=== PATIENT | female | born 1945 | race Caucasian/White ===

== ENCOUNTER → 2018-01-01 09:08 | Outpatient (CLI) | payer MEDICARE, BC, SELFPAY ==
[2018-01-01 10:59] LABS: AST(SGOT) 20 U/L (15-37); Alanine Aminotransfer ALT/SGPT 33 U/L (13-56); Albumin, Serum 3.7 g/dL (3.2-5.0); Alkaline Phosphatase 67 U/L (45-117); Anion Gap 9 (5-15); BUN 18 mg/dL (7-18); BUN/Creat Ratio 16.1 RATIO (10-20); Calcium,Total 9.8 mg/dL (8.5-10.1); Chloride 106 mmol/L (98-107); Creatinine, Serum 1.12 mg/dL (0.55-1.02); EST Glomerular Filtration Rate 51 mL/min (>60); Est Glom Filt Rate - Afr Amer 61 mL/min (>60); Globulin 3.7 g/dL (2.2-4.2); Glucose 137 mg/dL (74-106); Potassium 3.6 mmol/L (3.5-5.1); Protein, Total 7.4 g/dL (6.4-8.2); Sodium Level 144 mmol/L (136-145); T4 Free Direct 1.07 ng/dL (0.76-1.46); Thyroid Stim Hormone (TSH) 0.35 uIU/mL (0.358-3.74)
== END ==
LOC: MFPLAB 09:09 → MTLAB 09:18
PROVIDERS: Family Provider Family Medicine; PCP Family Medicine; Visit Provider Family Medicine
DX: I10 Essential (primary) hypertension (principal); E03.9 Hypothyroidism, unspecified
CPT/HCPCS: 36415; 80053; 84439; 84443

== ENCOUNTER → 2018-03-23 07:26 | Outpatient (CLI) | payer MEDICARE, BC, SELFPAY ==
--- NOTE | 2018-03-23 07:31 | BI_ITS ---
MAMMOGRAPHY - BILATERAL SCREENING REASON FOR EXAM: Female, 72 years old. Routine annual screening examination. PERTINENT HISTORY: Mother with breast cancer. TECHNIQUE: Digital bilateral breast malia (3D mammographic acquisition) in the CC and MLO projections. 2-D mediolateral oblique (MLO) and craniocaudad (CC) views of both breasts were obtained. CAD: Full Field Digital Mammography with Computer Added Detection was performed. COMPARISON: Comparison is made with prior study dated March 09, 2017 and March 04, 2016. FINDINGS: Breast Composition: The breasts are heterogeneously dense, which may obscure small masses. There are no dominant masses or suspicious calcifications. Stable benign-appearing bilateral axillary lymph nodes. No other significant abnormalities are identified. There has been no significant change since the prior study. BI/SCREENING MAMM (CAD), BILAT IMPRESSION: Stable bilateral screening mammogram. Yearly follow-up mammogram recommended. (A) ASSESSMENT CATEGORY: BIRADS Category 2: Benign. A letter regarding these results will be sent to the patient by the facility within 30 days. Approximately 10% of breast cancers are not detected by mammography. A normal mammogram should not delay biopsy of a clinically suspicious abnormality. [id number] Electronically Signed: Homer Brown MD at 9:58 EDT Tel [phone], Service support ,
== END ==
PROVIDERS: Family Provider Family Medicine; PCP Family Medicine; Visit Provider Family Medicine
DX: Z12.31 Encounter for screening mammogram for malignant neoplasm of breast (principal)
CPT/HCPCS: 77063; 77067

== ENCOUNTER → 2018-05-29 08:08 | Outpatient (CLI) | payer MEDICARE, BC, SELFPAY ==
[2018-05-30 10:03] LABS: Anion Gap 9 (5-15); BUN 20 mg/dL (7-18); BUN/Creat Ratio 14.4 RATIO (10-20); Calcium,Total 10.1 mg/dL (8.5-10.1); Chloride 102 mmol/L (98-107); Cholesterol 165 mg/dL (200); Creatinine, Serum 1.39 mg/dL (0.55-1.02); EST Glomerular Filtration Rate 40 mL/min (>60); Est Glom Filt Rate - Afr Amer 48 mL/min (>60); Glucose 103 mg/dL (74-106); High Density Lipoprotein 41 mg/dL; Potassium 3.9 mmol/L (3.5-5.1); Sodium Level 139 mmol/L (136-145); T4 Free Direct 1.19 ng/dL (0.76-1.46); Thyroid Stim Hormone (TSH) 4.35 uIU/mL (0.358-3.74); Triglycerides 223 mg/dL; Very Low Density Lipoprotein 45 mg/dL (5-40)
== END ==
PROVIDERS: Family Provider Family Medicine; PCP Family Medicine; Visit Provider Family Medicine
DX: I10 Essential (primary) hypertension (principal); E03.9 Hypothyroidism, unspecified
CPT/HCPCS: 36415; 80048; 80061; 84439; 84443

== ENCOUNTER → 2018-06-21 11:16 | Outpatient (CLI) | payer MEDICARE, BC, SELFPAY ==
--- NOTE | 2018-06-21 11:20 | RAD_ITS ---
STUDY: X-RAY - LEFT SHOULDER REASON FOR EXAM: Female, 72 years old. Chronic pain. TECHNIQUE: 4 view(s) of the shoulder. COMPARISON: None. FINDINGS: There is mild degenerative arthrosis of the glenohumeral articulation. There is degenerative arthrosis of the acromioclavicular joint without inferior osseous spur formation. Normal acromion. Normal humeral head and visualized proximal humerus. The soft tissue structures are unremarkable. There is no demonstrated fracture. Normal visualized pulmonary apex. RAD/Shoulder min 2 Views IMPRESSION: No acute abnormality. Degenerative changes. Electronically Signed: Donal Culp MD at 15:52 EST , Service support ,
--- NOTE | 2018-06-21 11:20 | RAD_ITS ---
STUDY: X-RAY - CERVICAL SPINE REASON FOR EXAM: Female, 72 years old. Chronic pain with limited range of motion TECHNIQUE: 5 view(s) of the cervical spine were obtained. COMPARISON: None FINDINGS: Normal anterior atlantoaxial articulation. Normal odontoid process. There is straightening of the normal cervical lordosis. There is multi-level endplate spondylosis. There is loss of disc space most conspicuous at C6-C7. Multilevel facet arthropathy throughout the cervical spine with uncovertebral hypertrophy in the lower segments. Foraminal narrowing is identified at the left C4-C5 and C5-C6 and right C3-C4 and C5-C6. The soft tissue structures are unremarkable. RAD/Cerv Spine 4 or 5 Views IMPRESSION: Degenerative disc disease with uncovertebral hypertrophy, facet arthropathy and bilateral foraminal narrowing, as above. Electronically Signed: King Zelaya MD at 18:17 EST , Service support ,
--- NOTE | 2018-06-21 11:20 | RAD_ITS ---
STUDY: X-RAY - LUMBAR SPINE REASON FOR EXAM: Female, 72 years old. Chronic low back pain TECHNIQUE: 5 view(s) of the lumbar spine were obtained. COMPARISON: 08/03/2010 FINDINGS: Normal lumbar lordosis. There is no substantial scoliosis. There is a normal alignment of the vertebrae. There is multilevel endplate spondylosis of the lumbar vertebrae. There is loss of disc space most conspicuous at L5-S1. Moderate multilevel facet arthropathy throughout the lumbar spine, mildly worse since prior study of 2010. No subluxation. There is no demonstrated fracture. There is no demonstrated spondylolysis of the pars interarticulares. Surgical clips and edda noted. Calcification in the central pelvis may represent a calcified uterine fibroid. RAD/L/S Spine Min 4 Views IMPRESSION: Facet dominant degenerative changes. Electronically Signed: King Zelaya MD at 18:21 EST , Service support ,
== END ==
PROVIDERS: Family Provider Family Medicine; PCP Family Medicine; Referring Provider Family Medicine; Visit Provider Family Medicine
DX: M46.86 Other specified inflammatory spondylopathies, lumbar region (principal); M50.90 Cervical disc disorder, unspecified, unspecified cervical region; M19.012 Primary osteoarthritis, left shoulder
CPT/HCPCS: 72050; 72110; 73030

== ENCOUNTER → 2018-08-17 08:36 | Outpatient (CLI) | payer MEDICARE, BC, SELFPAY ==
[2018-08-17 10:32] LABS: T4 Free Direct 1.07 ng/dL (0.76-1.46); Thyroid Stim Hormone (TSH) 2.15 uIU/mL (0.358-3.74)
== END ==
PROVIDERS: Family Provider Family Medicine; PCP Family Medicine; Referring Provider Family Medicine; Visit Provider Family Medicine
DX: E03.9 Hypothyroidism, unspecified (principal)
CPT/HCPCS: 36415; 84439; 84443

== ENCOUNTER → 2018-11-16 07:28 | Outpatient (CLI) | payer MEDICARE, BC, SELFPAY ==
[2018-11-16 10:51] LABS: Anion Gap 6 (5-15); BUN 16 mg/dL (7-18); BUN/Creat Ratio 15.1 RATIO (10-20); Calcium,Total 9.9 mg/dL (8.5-10.1); Chloride 107 mmol/L (98-107); Cholesterol 163 mg/dL (200); Creatinine, Serum 1.06 mg/dL (0.55-1.02); EST Glomerular Filtration Rate 54 mL/min (>60); Est Glom Filt Rate - Afr Amer 65 mL/min (>60); Glucose 104 mg/dL (74-106); High Density Lipoprotein 41 mg/dL; Potassium 3.8 mmol/L (3.5-5.1); Sodium Level 141 mmol/L (136-145); T4 Free Direct 1.29 ng/dL (0.76-1.46); Triglycerides 228 mg/dL; Very Low Density Lipoprotein 46 mg/dL (5-40)
== END ==
PROVIDERS: Family Provider Family Medicine; PCP Family Medicine; Referring Provider Family Medicine; Visit Provider Family Medicine
DX: I10 Essential (primary) hypertension (principal); E03.9 Hypothyroidism, unspecified
CPT/HCPCS: 36415; 80048; 80061; 84439; 84443

== ENCOUNTER → 2019-03-12 11:44 | Outpatient (CLI) | payer MEDICARE, BC, SELFPAY ==
[2019-03-12 14:07] LABS: Hematocrit 49.6 % (37-47); Mean Corp Hgb Conc 32.3 g/dL (32-36); Mean Corpuscular Hgb 28.6 pg (27.0-32.0); Mean Corpuscular Volume 88.6 fL (81-99); Platelet Count 241 K/mm3 (150-450); RBC Distribution Width CV 13.7 % (11.6-14.6); RBC Distribution Width SD 43.9 fl (35.1-43.9); White Blood Count 6.1 K/mm3 (4.4-11.0)
[2019-03-12 14:37] LABS: AST(SGOT) 31 U/L (15-37); Alanine Aminotransfer ALT/SGPT 53 U/L (13-56); Albumin, Serum 3.9 g/dL (3.2-5.0); Alkaline Phosphatase 66 U/L (45-117); Anion Gap 5 (5-15); BUN 18 mg/dL (7-18); BUN/Creat Ratio 16.8 RATIO (10-20); Calcium,Total 10.4 mg/dL (8.5-10.1); Chloride 106 mmol/L (98-107); Creatinine, Serum 1.07 mg/dL (0.55-1.02); EST Glomerular Filtration Rate 53 mL/min (>60); Est Glom Filt Rate - Afr Amer 65 mL/min (>60); Glucose 88 mg/dL (74-106); Iron 84 ug/dL (50-170); Protein, Total 7.9 g/dL (6.4-8.2); Sodium Level 139 mmol/L (136-145); T4 Free Direct 1.17 ng/dL (0.76-1.46); Thyroid Stim Hormone (TSH) 1.34 uIU/mL (0.358-3.74); Vitamin B12 591 pg/mL (211-911); Vitamin D,25 Hydroxy 12.9 ng/mL (29.95-100.01)
== END ==
PROVIDERS: Family Provider Family Medicine; PCP Family Medicine; Referring Provider Family Medicine; Visit Provider Family Medicine
DX: E03.9 Hypothyroidism, unspecified (principal); E55.9 Vitamin D deficiency, unspecified; R53.83 Other fatigue
CPT/HCPCS: 36415; 80053; 82306; 82607; 83540; 83735; 84439; 84443; 85027

== ENCOUNTER → 2019-04-01 10:57 | Outpatient (CLI) | payer MEDICARE, BC, SELFPAY ==
--- NOTE | 2019-04-01 10:59 | BI_ITS ---
BILATERAL DIGITAL MAMMOGRAM WITH TOMOSYNTHESIS: Mediolateraloblique and craniocaudal views demonstrate a questionable parenchymal mass in the superior aspect of the right breast at the 12:00 position seen only on the craniocaudal view. Previously this area was faintly identified on the prior images but this cannot be seen on the right breast MLO or tomosymphysis MLO images. This probably represents a focal area of fibrocystic change No cluster of microcalcifications or architectural distortion is seen. No evidence of skin thickening is identified. There has been no significant change since 03/23/2018. Breast Density: The breast tissue is extremely dense which may lower the sensitivity of mammography. CAD was used to assist in final assessment. IMPRESSION: NORMAL MAMMOGRAM BILATERALLY. FINAL ASSESSMENT: BIRAD 1 (NEGATIVE) YEARLY MAMMOGRAM RECOMMENDED Approximately 10% of breast cancers are not detected by mammography. A normal mammogram should not delay biopsy of a clinically suspicious abnormality. Electronically Signed: Sigifredo Lopez, at 16:56 EDT Tel , Service support , BI/SCREEN MAMM (CAD) W/ALLYSSA BILAT
== END ==
PROVIDERS: Family Provider Family Medicine; PCP Family Medicine; Referring Provider Family Medicine; Visit Provider Family Medicine
DX: Z12.31 Encounter for screening mammogram for malignant neoplasm of breast (principal)
CPT/HCPCS: 77063; 77067

== ENCOUNTER → 2019-05-28 14:35 | Outpatient (CLI) | payer MEDICARE, BC, SELFPAY ==
--- NOTE | 2019-05-28 14:41 | RAD_ITS ---
STUDY: X-RAY CHEST REASON FOR EXAM: Female, 73 years old. RIGHT SUPRACLAVICULAR FOSSA FULLNESS TECHNIQUE: Frontal and lateral views of the chest. COMPARISON: None. FINDINGS: The lungs are clear and expanded. There is no demonstrated pleural abnormality. Normal size heart. Normal mediastinum and abhijeet. Normal visualized pulmonary arteries. Normal visualized aortic arch and descending thoracic aorta. Normal visualized thoracic spine. Normal visualized ribs, clavicles, and shoulders. There is no demonstrated abnormality of the visualized soft tissue structures of the upper abdomen. RAD/Chest PA and Lateral IMPRESSION: Normal x-ray examination of the chest. Electronically Signed: Donal Culp MD at 0:01 EST , Service support ,
[2019-05-28 17:35] LABS: Absolute Lymphocyte Count 1.53 X10^3/uL (0.83-4.51); Absolute Neutrophil Count 3.5 X10^3/uL (2.0-7.7); Basophil# 0.06 X10^3/uL; Eosinophil# 0.24 X10^3/uL; Hematocrit 47.1 % (37-47); Hemoglobin 15.7 g/dL (12.0-15.0); Lymphocyte # 1.53 X10^3/ul (4.0); Lymphocyte % 25.4 % (19-41); Mean Corp Hgb Conc 33.3 g/dL (32-36); Mean Corpuscular Volume 86.9 fL (81-99); Mean Platelet Vol. 11.8 fl (6.2-12.0); Monocyte# 0.68 X10^3/uL; Monocyte% 11.3 % (0-10); NRBC Flagged by Analyzer 0 % (0-5); Neutrophil # 3.49 X10^3/uL (2.7-7.7); Platelet Count 228 K/mm3 (150-450); RBC Distribution Width CV 13.2 % (11.6-14.6); RBC Distribution Width SD 41.9 fl (35.1-43.9); Red Blood Count 5.42 M/mm3 (4.2-5.4)
[2019-05-28 17:53] LABS: Erythrocyte Sedimentation Rate 12 mm/hr (0-30)
== END ==
PROVIDERS: Family Provider Family Medicine; PCP Family Medicine; Referring Provider Family Medicine; Visit Provider Family Medicine
DX: R22.2 Localized swelling, mass and lump, trunk (principal)
CPT/HCPCS: 36415; 71046; 85025; 85652

== ENCOUNTER → 2019-11-28 08:26 | Outpatient (CLI) | payer MEDICARE, BC, SELFPAY ==
[2019-11-28 10:25] LABS: Vitamin D,25 Hydroxy 41.4 ng/mL
[2019-11-28 10:44] LABS: Anion Gap 6 (5-15); BUN 19 mg/dL (7-18); BUN/Creat Ratio 16.4 RATIO (10-20); Calcium,Total 10.4 mg/dL (8.5-10.1); Chloride 101 mmol/L (98-107); Cholesterol 214 mg/dL (200); Creatinine, Serum 1.16 mg/dL (0.55-1.02); EST Glomerular Filtration Rate 49 mL/min (>60); Est Glom Filt Rate - Afr Amer 59 mL/min (>60); Glucose 110 mg/dL (74-106); High Density Lipoprotein 36 mg/dL; Sodium Level 137 mmol/L (136-145); T4 Free Direct 1.23 ng/dL (0.76-1.46); Thyroid Stim Hormone (TSH) 1.67 uIU/mL (0.358-3.74); Triglycerides 383 mg/dL; Very Low Density Lipoprotein 77 mg/dL (5-40)
== END ==
PROVIDERS: PCP Family Medicine; Referring Provider Family Medicine; Visit Provider Family Medicine
DX: I10 Essential (primary) hypertension (principal); E03.9 Hypothyroidism, unspecified; E55.9 Vitamin D deficiency, unspecified
CPT/HCPCS: 36415; 80048; 80061; 82306; 84439; 84443

== ENCOUNTER → 2020-04-03 12:50 | Outpatient (CLI) | payer MEDICARE, BC, SELFPAY ==
--- NOTE | 2020-04-03 12:54 | BI_ITS ---
MAMMOGRAPHY - BILATERAL SCREENING REASON FOR EXAM: Female, 74 years old. Routine annual screening examination. PERTINENT HISTORY: FM HX MOTHER 70, DAUGHTER 45(NEG BRENNON GENE), PAT AUNTS AGES ??, PT TESTED NEG FOR BRENNON GENE TECHNIQUE: Digital bilateral breast allyssa (3D mammographic acquisition) in the CC and MLO projections. 2-D mediolateral oblique (MLO) and craniocaudad (CC) views of both breasts were obtained. CAD: Full Field Digital Mammography with Computer Added Detection was performed. COMPARISON: 04/01/2019 and 03/23/2018 FINDINGS: Breast Composition: The breasts are heterogeneously dense, which may obscure small masses. There are no dominant masses or suspicious calcifications. No other significant abnormalities are identified. BI/SCREEN MAMM (CAD) W/ALLYSSA BILAT IMPRESSION: Stable bilateral screening mammogram. Yearly follow-up mammogram recommended. (A) ASSESSMENT CATEGORY: BIRADS Category 2: Benign. A letter regarding these results will be sent to the patient by the facility within 30 days. Approximately 10% of breast cancers are not detected by mammography. A normal mammogram should not delay biopsy of a clinically suspicious abnormality. [id number] Electronically Signed: Maeve Smith, at 14:19 EDT Tel , Service support ,
== END ==
PROVIDERS: PCP Family Medicine; Referring Provider Family Medicine; Visit Provider Family Medicine
DX: Z12.31 Encounter for screening mammogram for malignant neoplasm of breast (principal)
CPT/HCPCS: 77063; 77067

== ENCOUNTER → 2020-07-09 | Outpatient (CLI) | payer MEDICARE, BC, SELFPAY ==
--- NOTE | 2020-07-09 | LES_PTH ---
PATIENT: MCKAYLA DELATORRE LOC: [facility] U#:[id number] AGE/SX: 74/F ROOM: RE07/09/[address]: Dr. Checo Perez MD : 1945 BED: DIS: 07/09/2020 SPEC #: [id number] RECD: 07/09/20 12:01 STATUS: MARÍA REMarek #: [id number] FANTA: 07/09/20 00:[address]: Checo Perez DEPT: SURGICAL PATHOLOGY RECD BY: Mena Aiken ENTERED: 07/09/20 13:08 SP TYPE: Lesion OTHR DR: Dr. Wicho Rosa MD Tissues: Skin, NOS Procedures: Surgery Specimen Level IV HEADER OPERATION: Lesion roof of mouth PRE-OP DIAGNOSIS: Benign neoplasm of hard palate TISSUE SUBMITTED: Lesion roof of mouth MICROSCOPIC DIAGNOSIS Lesion roof of mouth, biopsy: Fragments of squamous papilloma. BARBARA:cesar 07/10/2020 MICROSCOPIC DESCRIPTION Slides are reviewed. GROSS DESCRIPTION Received in fixative is one container labeled with the patient's name and designated lesion roof of mouth. The specimen consists of three irregular fragments of light segura soft tissue that in aggregate measure 0.6 x 0.2 x 0.1 cm. The specimen is totally submitted in one cassette. / SJ:cesar 07/09/20 TC:1 CPT: 00465
== END | disposition home or self-care (01) ==
LOC: LABSPEC 12:10
PROVIDERS: PCP Family Medicine; Referring Provider Otolaryngology; Visit Provider Otolaryngology
DX: D10.39 Benign neoplasm of other parts of mouth (principal)
CPT/HCPCS: 88305

== ENCOUNTER → 2021-01-04 09:21 | Outpatient (CLI) | payer MEDICARE, BC, SELFPAY ==
[2021-01-04 10:20] LABS: Absolute Neutrophil Count 3.3 X10^3/uL (2.0-7.7); Basophil# 0.05 X10^3/uL; Basophil% 0.9 % (0-1); Eosinophil# 0.26 X10^3/uL; Eosinophils% 4.5 % (0-5); Hemoglobin 15.4 g/dL (12.0-15.0); Lymphocyte % 24.5 % (19-41); Mean Corp Hgb Conc 32.8 g/dL (32-36); Mean Corpuscular Hgb 28.6 pg (27.0-32.0); Mean Corpuscular Volume 87.2 fL (81-99); Mean Platelet Vol. 11.7 fl (6.2-12.0); Monocyte# 0.68 X10^3/uL; Monocyte% 11.9 % (0-10); NRBC Flagged by Analyzer 0 % (0-5); Neutrophil % 57.7 % (47-70); Platelet Count 221 K/mm3 (150-450); RBC Distribution Width CV 13.4 % (11.6-14.6); RBC Distribution Width SD 42.5 fl (35.1-43.9); Red Blood Count 5.39 M/mm3 (4.2-5.4); White Blood Count 5.7 K/mm3 (4.4-11.0)
[2021-01-04 10:56] LABS: Anion Gap 7 (5-15); BUN 15 mg/dL (7-18); Calcium,Total 10.2 mg/dL (8.5-10.1); Chloride 103 mmol/L (98-107); Creatinine, Serum 1.07 mg/dL (0.55-1.02); EST Glomerular Filtration Rate 53 mL/min (>60); Est Glom Filt Rate - Afr Amer 64 mL/min (>60); Glucose 103 mg/dL (74-106); Phosphorus 2.4 mg/dL (2.5-4.9); Potassium 3.8 mmol/L (3.5-5.1); Sodium Level 136 mmol/L (136-145); Thyroid Stim Hormone (TSH) 1.37 uIU/mL (0.358-3.74)
[2021-01-04 15:32] LABS: Vitamin D,25 Hydroxy 25.5 ng/mL
[2021-01-04 15:51] LABS: PTHIN 68.6 pg/mL (18.4-80.1)
== END ==
PROVIDERS: PCP Family Medicine; Referring Provider Family Medicine; Visit Provider Family Medicine
DX: E55.9 Vitamin D deficiency, unspecified (principal); E83.52 Hypercalcemia; E03.9 Hypothyroidism, unspecified; R71.8 Other abnormality of red blood cells
CPT/HCPCS: 36415; 80048; 82306; 82330; 83970; 84100; 84443; 85025

== ENCOUNTER → 2021-01-08 12:27 | Outpatient (CLI) | payer MEDICARE, BC, SELFPAY ==
--- NOTE | 2021-01-08 12:35 | MRI_ITS ---
STUDY: MRI LEFT WRIST WITHOUT CONTRAST REASON FOR EXAM: Left wrist pain, lipoma since 2018. TECHNIQUE: Standardized fat and water weighted pulse sequences were obtained in all 3 orthogonal planes. COMPARISON: Radiographs 09/23/2015. FINDINGS: Normal visualized distal radius and ulna. There is a small effusion of the distal radioulnar joint (inversion recovery axial images 20-23). Normal triangular fibrocartilaginous complex (TFCC). There are cysts in the scaphoid and lunate (inversion recovery coronal images 12-16). Normal radiocarpal, intercarpal and midcarpal articulations. There are multiple small intra-articular bodies in the pisotriquetral articulation with osseous erosions (T2 sagittal images 23-25). Normal visualized interosseous scapholunate ligament. Normal extensor tendons. Normal flexor tendons. Normal carpal tunnel with a normal median nerve. There is arthrosis of the carpometacarpal articulation of the thumb with marginal osteophytes, subchondral cystic change and chondral loss (T1 coronal images 11-14). Normal second through fifth carpometacarpal articulations. Normal visualized metacarpal bones. There is prominence of the subcutaneous fat at the radial aspect of the wrist (T1 axial images 8-17) suggestive of a superficial nonencapsulated lipoma. MRI/Upper Ext Joint Only(Routine) IMPRESSION: Prominence of subcutaneous fat at the radial aspect of the wrist suggestive of a superficial nonencapsulated lipoma. Multiple small intra-articular bodies in the pisotriquetral articulation with erosive changes. Arthrosis of the first carpometacarpal articulation. Small distal radioulnar joint effusion. Electronically Signed: Shiva Pacheco MD at 13:47 EDT Tel , Service support ,
== END ==
PROVIDERS: PCP Family Medicine; Referring Provider Family Medicine; Visit Provider Family Medicine
DX: D17.22 Benign lipomatous neoplasm of skin and subcutaneous tissue of left arm (principal); M18.9 Osteoarthritis of first carpometacarpal joint, unspecified
CPT/HCPCS: 73221

== ENCOUNTER → 2021-04-06 10:18 | Outpatient (CLI) | payer MEDICARE, BC, SELFPAY ==
--- NOTE | 2021-04-06 10:38 | BI_ITS ---
MAMMOGRAPHY - BILATERAL SCREENING REASON FOR EXAM: Female, 75 years old. Routine annual screening examination. PERTINENT HISTORY: Daughter with breast cancer. Mother with breast cancer. Aunt with breast cancer. TECHNIQUE: Digital bilateral breast allyssa (3D mammographic acquisition) in the CC and MLO projections. 2-D mediolateral oblique (MLO) and craniocaudad (CC) views of both breasts were obtained. CAD: Full Field Digital Mammography with Computer Added Detection was performed. COMPARISON: Comparison is made with prior examination 04/03/2020 and 04/01/2019. FINDINGS: Breast Composition: The breasts are heterogeneously dense, which may obscure small masses. There are no dominant masses or suspicious calcifications. Possible 1.2 cm x 1 cm nodular density in the central lateral aspect of the right breast. The patient will be called for additional views including 90 degree lateral and compression spot views. No other significant abnormalities are identified. BI/SCRN MAMM (CAD)W/ALLYSSA BILAT IMPRESSION: Questionable 1.2 cm x 1 cm nodular density in the central lateral aspect of the right breast as described. The patient will be recalled for additional views of the right breast. Recall Side: Right Breast ASSESSMENT CATEGORY: BIRADS Category 0: Incomplete. Need additional imaging evaluation. A letter regarding these results will be sent to the patient by the facility within 30 days. Approximately 10% of breast cancers are not detected by mammography. A normal mammogram should not delay biopsy of a clinically suspicious abnormality. [id number] Electronically Signed: Homer Brown MD at 12:50 EDT , Service support ,
== END ==
PROVIDERS: PCP Family Medicine; Referring Provider Family Medicine; Visit Provider Family Medicine
DX: Z12.31 Encounter for screening mammogram for malignant neoplasm of breast (principal); N63.10 Unspecified lump in the right breast, unspecified quadrant; Z80.3 Family history of malignant neoplasm of breast
CPT/HCPCS: 77063; 77067

== ENCOUNTER → 2021-04-12 14:32 | Outpatient (CLI) | payer MEDICARE, BC, SELFPAY ==
--- NOTE | 2021-04-12 14:34 | BI_ITS ---
MAMMOGRAPHY - UNILATERAL DIAGNOSTIC: RIGHT BREAST REASON FOR EXAM: Female, 75 years old. Abnormal screening mammogram. PERTINENT HISTORY: Daughter with breast cancer. Mother with breast cancer. Aunt with breast cancer. TECHNIQUE: 90 degree lateral and compression spot views of the right breast were obtained. CAD: Full Field Digital Mammography with Computer Added Detection was performed. COMPARISON: Comparison is made with prior mammogram dated 04/03/2020. FINDINGS: Breast Composition: The breasts are heterogeneously dense, which may obscure small masses. Persistent 1.3 cm nodular density in the central region of the right breast. Correlation with ultrasound is recommended. No other significant abnormalities are identified. BI/DIAG MAMM W/CAD, UNILAT IMPRESSION: Persistent 1.3 cm nodular density in the central region of the right breast as described. Correlation with ultrasound is recommended. ASSESSMENT CATEGORY: BIRADS Category 0: Incomplete. Need additional imaging evaluation. A letter regarding these results will be sent to the patient by the facility within 30 days. Approximately 10% of breast cancers are not detected by mammography. A normal mammogram should not delay biopsy of a clinically suspicious abnormality. Electronically Signed: Homer Brown MD at 15:28 EDT , Service support ,
--- NOTE | 2021-04-12 14:34 | US_ITS ---
STUDY: ULTRASOUND BREAST - RIGHT REASON FOR EXAM: Female, 75 years old. Abnormal screening mammogram. TECHNIQUE: Axial and longitudinal images of the RIGHT breast were performed with a high resolution ultrasound transducer. # OF IMAGES: 24 COMPARISON: Comparison is made with prior mammogram dated 04/12/2021 and 04/06/2021. FINDINGS: RIGHT Breast: Entire breast was examined by ultrasound. There is dense fibroglandular tissue. No solid or cystic masses seen. The mammographic abnormality most likely corresponds to a focal area of fibroglandular tissue. US/Breast Limited Unilateral IMPRESSION: No sonographic abnormality is present. ASSESSMENT CATEGORY: BIRADS Category 1: Negative. A letter regarding these results will be sent to the patient by the facility within 30 days. Electronically Signed: Homer Brown MD at 12:53 EDT , Service support ,
== END ==
PROVIDERS: PCP Family Medicine; Referring Provider Family Medicine; Visit Provider Family Medicine
DX: N63.10 Unspecified lump in the right breast, unspecified quadrant (principal); Z80.3 Family history of malignant neoplasm of breast; R92.8 Other abnormal and inconclusive findings on diagnostic imaging of breast
CPT/HCPCS: 76642; 77065

== ENCOUNTER 2021-10-13 08:20 | Outpatient (CLI) | payer MEDICARE, BC, SELFPAY ==
[2021-10-13 08:27] LABS: Bacteria 0 SEEN /hpf (None Seen); Mucous, Urine 0 SEEN /hpf (<or=2+); Red Blood Cells-Urine 0 SEEN /hpf (0-5); White Blood Cells 0 SEEN /hpf (0-5)
[2021-10-13 10:25] LABS: Color, Urine Yellow (Yellow); Glucose, Dipstick Normal (Normal); Ketone-Dipstick Negative (Negative); Leukocyte Esterase-Dipstick Negative /ul (Negative); Nitrite-Dipstick Negative (Negative); Occult Blood-Urine Negative /ul (Negative); Protein-Dipstick Negative (Negative); Urine Bilirubin Dipstick Negative (Negative); Urine Clarity Sl. Cloudy (Clear); Urine Urobilinogen Normal (Normal)
[2021-10-13 10:33] LABS: Anion Gap 7 (5-15); BUN 19 mg/dL (7-18); BUN/Creat Ratio 18.8 RATIO (10-20); Calcium,Total 10.3 mg/dL (8.5-10.1); Chloride 106 mmol/L (98-107); Creatinine, Serum 1.01 mg/dL (0.55-1.02); EST Glomerular Filtration Rate 57 mL/min (>60); Est Glom Filt Rate - Afr Amer 69 mL/min (>60); Glucose 109 mg/dL (74-106); Phosphorus 2.7 mg/dL (2.5-4.9); Potassium 3.9 mmol/L (3.5-5.1); Sodium Level 139 mmol/L (136-145)
[2021-10-13 10:35] LABS: Squamous Epithelial Cells - UA 0-5 SEEN /hpf (5-10)
[2021-10-13 10:42] LABS: PTHIN 101.5 pg/mL (18.4-80.1)
[2021-10-13 10:47] LABS: Vitamin D,25 Hydroxy 38.2 ng/mL
== END 2021-10-13 23:59 | disposition home or self-care (01) ==
LOC: MFPLAB 08:26
PROVIDERS: PCP Family Medicine; Referring Provider Family Medicine; Visit Provider Family Medicine
DX: E83.52 Hypercalcemia (principal); R31.9 Hematuria, unspecified
CPT/HCPCS: 80048; 81001; 82306; 82330; 83970; 84100; 87086

== ENCOUNTER → 2021-10-21 | Outpatient (CLI) | payer MEDICARE, BC, SELFPAY ==
--- NOTE | 2021-10-21 | EMB_PTH ---
PATIENT: MCKAYLA DELATORRE LOC: [facility] U#:[id number] AGE/SX: 76/F ROOM: RE10/21/[address]: Dr. Sigifredo Osei MD : 1945 BED: DIS: 10/21/2021 SPEC #: [id number] RECD: 10/21/21 13:10 STATUS: MARÍA ARIEL #: [id number] FANTA: 10/21/21 00:[address]: Sigifredo Osei DEPT: SURGICAL PATHOLOGY RECD BY: Nav Yoo ENTERED: 10/21/21 13:10 SP TYPE: ENDOM BX/C DORA DR: Dr. Wicho Rosa MD Tissues: Endometrium, NOS Procedures: Surgery Specimen Level IV HEADER OPERATION: Endometrial biopsy PRE-OP DIAGNOSIS: N95.0 TISSUE SUBMITTED: Endometrial biopsy MICROSCOPIC DIAGNOSIS Endometrial biopsy: Scant strips of benign endometrial epithelium, consistent with atrophic endometrium. Fragments of benign ecto- and endocervical epithelium and mucus. /SJ 10/22/21 COMMENT Correlation with clinical findings and appropriate follow up are necessary. MICROSCOPIC DESCRIPTION Slides are reviewed. GROSS DESCRIPTION Received in formalin is one container labeled with the patient name and designated EMB. The specimen consists of multiple fragments segura mucoid tissue measuring in aggregate 2.5 x 1 x .0.1 cm. The specimen is totally submitted in one cassettes. / SJ 10/22/2021 TC:4 CPT: 28486
== END | disposition home or self-care (01) ==
LOC: LABSPEC 11:42
PROVIDERS: PCP Family Medicine; Visit Provider Obstetrics & Gynecology
DX: N95.0 Postmenopausal bleeding (principal)
CPT/HCPCS: 88305

== ENCOUNTER → 2021-11-09 | Outpatient (CLI) | payer MEDICARE, BC, SELFPAY ==
[2021-11-09 13:03] LABS: (24 HR) Urine Calcium 274.4 mg/24 HR (42.0-353.0); 24HR UR TOTAL VOLUME 2800 ml; Calcium Urine pH Range 1; Urine Calcium (Random) 9.8 (Not Estab.)
== END | disposition home or self-care (01) ==
LOC: MFPLAB 09:47
PROVIDERS: PCP Family Medicine; Visit Provider Family Medicine
DX: E83.52 Hypercalcemia (principal)
CPT/HCPCS: 82340

== ENCOUNTER 2021-11-15 05:56 | Day surgery (SDC) | payer MEDICARE, BC, SELFPAY ==
[2021-11-09 15:26] LABS: International Normalized Ratio 1.1; Partial Thromboplast Time 28.3 Seconds (24.1-36.2); Prothrombin Time (Protime)PT. 13.7 SECONDS (11.7-14.9)
[2021-11-09 15:34] LABS: AST(SGOT) 22 U/L (15-37); Alanine Aminotransfer ALT/SGPT 47 U/L (13-56); Albumin, Serum 3.8 g/dL (3.2-5.0); Alkaline Phosphatase 64 U/L (45-117); Anion Gap 6 (5-15); BUN 16 mg/dL (7-18); BUN/Creat Ratio 17.4 RATIO (10-20); Calcium,Total 10.5 mg/dL (8.5-10.1); Chloride 109 mmol/L (98-107); Creatinine, Serum 0.92 mg/dL (0.55-1.02); EST Glomerular Filtration Rate 63 mL/min (>60); Est Glom Filt Rate - Afr Amer 77 mL/min (>60); Globulin 3.7 g/dL (2.2-4.2); Glucose 110 mg/dL (74-106); Protein, Total 7.5 g/dL (6.4-8.2); Sodium Level 140 mmol/L (136-145)
[2021-11-09 15:40] LABS: Hematocrit 46.6 % (37-47); Hemoglobin 15.1 g/dL (12.0-15.0); Mean Corp Hgb Conc 32.4 g/dL (32-36); Mean Corpuscular Hgb 28.8 pg (27.0-32.0); Mean Corpuscular Volume 88.9 fL (81-99); Mean Platelet Vol. 11.7 fl (6.2-12.0); Platelet Count 227 K/mm3 (150-450); RBC Distribution Width CV 13.6 % (11.6-14.6); RBC Distribution Width SD 44.1 fl (35.1-43.9); Red Blood Count 5.24 M/mm3 (4.2-5.4); White Blood Count 6.4 K/mm3 (4.4-11.0)
--- NOTE | 2021-11-14 18:00 | PCM.HP.BLA ---
History and Physical Date of Admission: 11/15/21 Surgical History and Physical Sari Alvarado, a 76 year old female 2 1 0 0 3, presents for D and C and hysteroscopy on November 15, 2021 at . 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 Has continued to have spots of blood in her underwear. She is not sure if its coming from urethra or hemorrhoid. She is otherwise healthy with only medical issue osteoarthritis and allergies. U/S with thickened EM. MEDICATIONS HISTORY: Patient is also takin. fluocinolone 0.01 % topical body oil, to ears 2. ipratropium bromide 21 mcg (0.03 %) nasal spray, daily 3. Zaditor 0.025 % (0.035 %) eye drops, daily ALLERGIES: Cipro, Nausea, Tetracyclines, Hives and/or rash, Vicodin, Nausea, Lexapro and Hypertension Infections - Chicken pox, Mumps and Measles Illnesses - Osteoarthritis, Allergies Accidents - no injuries of consequence Hospitalizations - see surgery Review of Systems: GENERAL - Denies fever, or chills SKIN - Denies skin changes EYES - Denies visual changes EARS - Denies difficulty hearing NOSE - Denies nasal congestion or bleeding MOUTH - Denies sore throat or difficulty swallowing NECK - Denies pain or swelling RESPIRATORY - Denies shortness of breath or wheezing CARDIOVASCULAR - Denies palpitations or chest pain GASTROINTESTINAL - Denies nausea, vomiting, diarrhea, constipation GENITOURINARY - Denies dysuria, frequency of urination, incontinence of urine MUSCULOSKELETAL - Denies joint or muscle pain NEUROLOGICAL - Denies localized numbness or weakness PSYCHIATRIC - Denies depression or anxiety ENDOCRINE - Denies heat or cold intolerance, weight loss or gain HEMATO-IMMUNOLOGIC - Denies excesive bleeding with cuts SOCIAL HISTORY: Alcohol Use - denies drinking Smoking - denies smoking Diet - no special diet Lifestyle - Exercise - walking Seat Belt Use - always Employer - Retired Illicit Drug Use - denies use of street drugs Sexual Activity - Spouse-Sig Other Name - Dany Spouse-Sig Other Occupation - Retired Children Name(s) - 3 children Control - postmenopausal FAMILY HISTORY: MENSTRUAL HISTORY: LMP Known?- Postmenopausal, Age Onset Menarche - 15 PAST PREGNANCIES: Total Pregnancies - 3; Full Term Pregnancies - 2; Premature - 1; Abortions, Induced - 0; Abortions, Spontaneous - 0; Ectopics - 0; Multiple Births - 0; Living Children - 3 SURGICAL HISTORY: 1. Laparoscopy, 1979 ; - 2. carpal tunnel, 1993 ; - 3. Umbical Hernia, 1999 ; - 4. Left Knee Replacement, 2009 ; - 5. 2017 Lipoma removal ; - 6. R intraocular lens, 04/15 ; - 7. L intraocular lens, 05/16 ; - 8. R knee replacement, 2004 ; - PHYSICAL EXAM BP- 144/84 Sitting, Right arm, large cuff Weight- 226.63219 lbs Height- 67 inch BMI:[id number] CONSTITUTIONAL - NAD, well nourished, and well developed and obese SKIN - No rash, lesions, or ulcers HEENT - Normocephalic, PERRLA, EOMI NECK - No nodes, no nuchal rigidity and thyroid normal size and texture LYMPH NODES - Palpation of lymph nodes in neck and groins within normal limits LUNGS - CTA x2 without wheezes, crackles or rales CARDIAC - Regular rate and rhythm without rubs, murmurs, or gallops ABDOMEN - Without hepatosplenomegaly, distention, masses, rebound, or guarding; normal bowel sounds; no hernias EXTREMITIES - No edema or calf tenderness NEUROLOGICAL - Cranial nerves II-XII grossly intact PSYCHIATRIC - A and O to time, place, person, mood and affect External Genitial Vagina - non-tender without lesions Urethra/Urethral Meatus - non-tender Bladder - non-tender Vagina - vaginal black are pink and moist without loss of rugae and no evidence of atropy Cervix - without cervical motion tenderness and has normal size and features without evident lesions Uterus - multiparous size 6 cm & wt 75-125 g Adnexa - clear without massess or tenderness ASSESSMENT/PLAN: 1. Postmenopausal Bleeding Await EMBx. Thick EM on u/s today with uterus/ovaries ok otherwise. If EMBx inconclusive, discussed need to proceed with D and C and H/S.
[2021-11-15] VITALS (7 sets, daily range): BP systolic 117–180; BP diastolic 69–81; PULSE 67–80; RESP 16; TEMP 36.2–36.8; O2SAT 16–100; BMI 34.2
--- NOTE | 2021-11-15 | CER_PTH ---
PATIENT: MCKAYLA DELATORRE LOC: [facility] – [place], [place] U#:[id number] AGE/SX: 76/F ROOM: RE11/15/[address]: Dr. Sigifredo Osei MD : 1945 BED: DIS: 11/15/2021 SPEC #: [id number] RECD: 11/15/21 13:41 STATUS: MARÍA ARIEL #: [id number] FANTA: 11/15/21 00:[address]: Sigifredo Osei DEPT: SURGICAL PATHOLOGY RECD BY: Nav Yoo ENTERED: 11/15/21 13:41 SP TYPE: CERV OTHR DR: Dr. Wicho Rosa MD Tissues: A - Uterine cervix, NOS B - Endometrium, NOS Procedures: Surgery Specimen Level IV HEADER OPERATION: Hysteroscopy, dilation and curettage PRE-OP DIAGNOSIS: Postmenopausal bleeding TISSUE SUBMITTED: A ? Endocervical curettings, B ? Endometrial curettings MICROSCOPIC DIAGNOSIS A. Endocervical curettings: Fragments of benign ecto- and endocervical epithelium and mucous. B. Endometrial curettings: Fragments of endometrial polyp with extensive simple cystic and focal complex endometrial hyperplasia with atypia. See comment. SJ:cesar 11/16/2021 COMMENT Clinical correlation and appropriate follow up are necessary. Please make reference to previous specimen ([id number]), endometrial biopsy with diagnosis of ?scant strips of benign endometrial epithelium, consistent with atrophic endometrium.? Case has been reviewed in consultation with Dr. Lilly who concurs with the above diagnosis. IDC:AM MICROSCOPIC DESCRIPTION Slides are reviewed. GROSS DESCRIPTION A - Received in fixative is one container labeled with the patient's name and designated endocervical curettings. The specimen consists of multiple irregular fragments of segura mucoid tissue that in aggregate measure 1 x 0.3 x 0.1 cm. The specimen is totally submitted in one cassette. B - Received in fixative is one container labeled with the patient's name and designated endometrial curettings. The specimen consists of multiple polypoid pieces of segura-pink soft tissue that in aggregate measure 4.5 x 3 x 1 cm. The largest piece measures 3 cm in greatest dimension. The largest pieces are sectioned. The entire specimen is submitted in three cassettes. Cassette 3 contains the largest piece. / BARBARA:cesar TC:5 CPT: 87501 x2
[2021-11-15] MEDS: Lactated Ringers 1,000 ML 15 ML IV (06:39)
--- NOTE | 2021-11-15 07:26 | PCM.OPRPT ---
Report of Operation Date of Procedure: 11/15/21 Pre-Operative Diagnosis: Postmenopausal Bleeding Post-Operative Diagnosis: Postmenopausal Bleeding, Endometrial Polyps Surgery/Procedure Performed:: Diagnostic Hysteroscopy, Fractional Dilation and Curettage Description of Surgical Findings:: 10 cm endometrial cavity without fibroids noted. Multiple 1-2 cm endometrial polyps noted. Cervix was high and vagina which would make robotic assisted hysterectomy necessary should hysterectomy be required in the future. Surgeon: Sigifredo Osei Type of Anesthesia: MAC Anesthesiologist: Nelson Jones Specimen's removed: Endometrial and endocervical curettings Estimated Blood Loss (mL): Minimal Fluids Replaced: Crystalloid Description of Procedure: Surgeon: Sigifredo Osei MD, FACOG Procedure: Diagnostic Hysteroscopy, Fractional Dilation and Curettage Indications: This is a 76 year old patient who has the above diagnosis. The patient has been counseled regarding the risk and indications of this procedure including the possibility of bleeding, infection, and injury to surrounding structures such as bowel bladder. All questions were answered and we consider the patient well-informed. Procedure: The patient was taken to the operating room where after induction of general anesthesia, she was placed in the dorsolithotomy position and prepped and draped in the usual sterile fashion. Anterior cervix was grasped with the tenaculum and dilated to about 4-5 mm. A 3 mm hysteroscope was placed in the uterus of the above findings were noted. Cervix was dilated to about 7-8 mm and uterus was gently curetted removing all contents. Hysteroscope was reinserted and all material was noted to be removed. In the course of the procedure approximately 100 cc of saline distending media was used and virtually all of this was recovered. Patient tolerated procedure well was taken to recovery room in satisfactory condition sponge instrument and needle counts were all reportedly correct. Estimated blood loss for the case was minimal. Specimens to pathology was endometrial and endocervical curettings Complications: None Grafts/Implants Used: None Complications None Admit VTE Documentation VTE Present on Admission: Yes VTE Mechan Device Prophylaxis: SCD's
--- NOTE | 2021-11-15 07:56 | PCM.DC ---
Discharge Instructions Diet Discharge Diet: No restrictions Activity Discharge Activity: Return to Normal Activity, May Shower and May Take a Tub Bath May resume sexual activity in: 1-2 weeks Additional Activity Instructions:: Nothing in vagina for 1 to 2 weeks. Okay the use ibuprofen or Tylenol per package directions for any cramping you may have over the next few days. Dressing / Incision Call your doctor if you observe: Fever of 101 or Higher, Inability to urinate and Inability to have a bowel movement Follow Up Care Please Follow Up With: Sigifredo Osei MD When: 2 to 3 weeks Test Results: Test results from this visit will be discussed in further detail at your follow-up appointment, if applicable. Discharge Plan Admission Primary Reason for Your Visit: Dilation and Curettage Attending Provider: Sigifredo Osei Primary Care Provider: Martín Rosa Discharge Orders/Prescriptions Prescriptions: No Action zinc 15 mg Tablet 30 mg PO DAILY RF: 0 levothyroxine [Synthroid] 137 mcg tablet 137 mcg PO MOTUWETHFRSA RF: 0 levothyroxine [Synthroid] 137 mcg tablet 67.5 mcg PO CRUZ RF: 0 enalapril maleate 10 mg tablet 10 mg PO DAILY RF: 0 ketotifen fumarate [Zaditor] 0.025 % (0.035 %) Drops 1 drp EACH EYE BID PRN (Reason: allergies) RF: 0 ipratropium bromide 42 mcg (0.06 %) spray,non-aerosol 1 spray INTRANASAL QHS PRN (Reason: Congestion) RF: 0 fluocinolone acetonide oil 0.01 % drops 4 drp EACH EAR DAILY PRN (Reason: ear discomfort) RF: 0 cholecalciferol (vitamin D3) [Vitamin D3] 125 mcg (5,000 unit) Tablet 125 mcg PO DAILY RF: 0 Catalyn 1 tab PO/SL TID RF: 0 Quercetin Nettle 1 tab PO/SL DAILY RF: 0 Referrals / Follow Up: Martín Rosa MD [Primary Care Provider] - Disposition Disposition (needs filled in before D/C Order can be placed): Home, Self Care
== END 2021-11-15 09:24 | disposition home or self-care (01) ==
LOC: SDC 05:58 → AC 05:58
PROVIDERS: PCP Family Medicine; Referring Provider Obstetrics & Gynecology; Visit Provider Obstetrics & Gynecology
PROC: 0UDB8ZZ Extraction of Endometrium, Via Natural or Artificial Opening Endoscopic (ICD-10-PCS; CPT 58558; principal; 2021-11-15 07:20)
DX: N95.0 Postmenopausal bleeding (principal); N85.02 Endometrial intraepithelial neoplasia [EIN]; I10 Essential (primary) hypertension; E78.00 Pure hypercholesterolemia, unspecified; E07.9 Disorder of thyroid, unspecified; M19.90 Unspecified osteoarthritis, unspecified site; G47.30 Sleep apnea, unspecified; E66.9 Obesity, unspecified; Z68.34 Body mass index [BMI] 34.0-34.9, adult; Z79.899 Other long term (current) drug therapy
CPT/HCPCS: 58558; 00952; 36415; 80053; 85027; 85610; 85730; 86850; 86900; 86901; 88305; J7120; J2405

== ENCOUNTER → 2021-11-18 | Outpatient (CLI) | payer MEDICARE, BC, SELFPAY ==
--- NOTE | 2021-11-18 10:02 | NM_ITS ---
Parathyroid scintigraphy INDICATION: Primary hyperparathyroidism TECHNIQUE: After the administration of 27 mCi of technetium 99m sestamibi intravenously, multiple scintigraphic images of the neck were obtained. FINDINGS: Immediate images demonstrate normal uptake within the salivary glands and thyroid gland. Examination of the delayed images demonstrates persistent uptake within the salivary glands and thyroid gland. No focal area of increased uptake to suggest parathyroid adenoma. NM/Parathyroid Scan IMPRESSION: No scintigraphic evidence of parathyroid adenoma. Electronically Signed: Manjit Aguero MD at 12:31 EDT ,
== END | disposition home or self-care (01) ==
LOC: NM 09:57
PROVIDERS: PCP Family Medicine; Visit Provider Family Medicine
DX: E21.0 Primary hyperparathyroidism (principal)
CPT/HCPCS: 78070; A9500

== ENCOUNTER → 2021-11-20 | Outpatient (CLI) | payer MEDICARE, BC, SELFPAY ==
[2021-11-20 10:50] LABS: Vitamin D,25 Hydroxy 38.3 ng/mL
[2021-11-20 11:00] LABS: Anion Gap 5 (5-15); BUN 12 mg/dL (7-18); BUN/Creat Ratio 12.5 RATIO (10-20); Calcium,Total 9.6 mg/dL (8.5-10.1); Chloride 109 mmol/L (98-107); Cholesterol 185 mg/dL (200); Creatinine, Serum 0.96 mg/dL (0.55-1.02); EST Glomerular Filtration Rate 60 mL/min (>60); Est Glom Filt Rate - Afr Amer 73 mL/min (>60); Glucose 104 mg/dL (74-106); High Density Lipoprotein 40 mg/dL; Sodium Level 139 mmol/L (136-145); Thyroid Stim Hormone (TSH) 5.83 uIU/mL (0.358-3.74); Triglycerides 289 mg/dL; Very Low Density Lipoprotein 58 mg/dL (5-40)
== END | disposition home or self-care (01) ==
LOC: LAB 08:36
PROVIDERS: PCP Family Medicine; Visit Provider Family Medicine
DX: I10 Essential (primary) hypertension (principal); E03.9 Hypothyroidism, unspecified; E55.9 Vitamin D deficiency, unspecified
CPT/HCPCS: 36415; 80048; 80061; 82306; 84443

== ENCOUNTER 2021-11-29 05:52 | Day surgery (SDC) | payer MEDICARE, BC, SELFPAY ==
--- NOTE | 2021-11-25 09:59 | EKG12_ITS ---
Test Reason : PREOP Blood Pressure : / mmHG Vent. Rate : 074 BPM Atrial Rate : 074 BPM P-R Int : 176 ms QRS Dur : 092 ms QT Int : 410 ms P-R-T Axes : 054 032 040 degrees QTc Int : 455 ms Normal sinus rhythm Normal ECG Confirmed by REJI ASHLEY, ANTONIO ([id number]), video editor DEANDRA HOLLAND ([id number]) on 11/26/2021 1:50:40 PM Referred By: Sigifredo Osei Confirmed By:YASMIN MENDOZA MD
[2021-11-25 10:52] LABS: Magnesium 1.9 mg/dL (1.6-2.6); Thyroid Stim Hormone (TSH) 7.14 uIU/mL (0.358-3.74)
--- NOTE | 2021-11-28 18:03 | PCM.HP.BLA ---
History and Physical Date of Admission: 11/29/21 Surgical History and Physical Sari Alvarado, a 76 year old female 2 1 0 0 3, presents for RAVH/BSO on November 29, 2021 at 0800 -- TURBINATED BONE GRINDER Bleeding; Complex EM hyperplasia with atypia -- Recent D and C showed complex EM hyperplasia with focus of atypia. MEDICATIONS HISTORY: Patient is also takin. fluocinolone 0.01 % topical body oil, to ears 2. ipratropium bromide 21 mcg (0.03 %) nasal spray, daily 3. Zaditor 0.025 % (0.035 %) eye drops, daily 4. amlodipine 5 mg tablet, One pill by mouth once a day 5. Synthroid 150 mcg tablet, One pill by mouth once a day ALLERGIES: Cipro, Nausea, Tetracyclines, Hives and/or rash, Vicodin, Nausea, Lexapro and Hypertension Infections - Chicken pox, Mumps and Measles Illnesses - Osteoarthritis, Allergies Accidents - no injuries of consequence Hospitalizations - see surgery Review of Systems: GENERAL - Denies fever, or chills SKIN - Denies skin changes EYES - Denies visual changes EARS - Denies difficulty hearing NOSE - Denies nasal congestion or bleeding MOUTH - Denies sore throat or difficulty swallowing NECK - Denies pain or swelling RESPIRATORY - Denies shortness of breath or wheezing CARDIOVASCULAR - Denies palpitations or chest pain GASTROINTESTINAL - Denies nausea, vomiting, diarrhea, constipation GENITOURINARY - Denies dysuria, frequency of urination, incontinence of urine MUSCULOSKELETAL - Denies joint or muscle pain NEUROLOGICAL - Denies localized numbness or weakness PSYCHIATRIC - Denies depression or anxiety ENDOCRINE - Denies heat or cold intolerance, weight loss or gain HEMATO-IMMUNOLOGIC - Denies excesive bleeding with cuts SOCIAL HISTORY: Alcohol Use - denies drinking Smoking - denies smoking Diet - no special diet Lifestyle - Exercise - walking Seat Belt Use - always Employer - Retired Illicit Drug Use - denies use of street drugs Sexual Activity - Spouse-Sig Other Name - Dany Spouse-Sig Other Occupation - Retired Children Name(s) - 3 children Control - postmenopausal FAMILY HISTORY: MENSTRUAL HISTORY: LMP Known?- Postmenopausal, Age Onset Menarche - 15 PAST PREGNANCIES: Total Pregnancies - 3; Full Term Pregnancies - 2; Premature - 1; Abortions, Induced - 0; Abortions, Spontaneous - 0; Ectopics - 0; Multiple Births - 0; Living Children - 3 SURGICAL HISTORY: 1. Laparoscopy, 1979 2. carpal tunnel, 1993 3. Umbical Hernia, 1999 4. Left Knee Replacement, 2009 5. 2017 Lipoma removal 6. R intraocular lens, 04/15 7. L intraocular lens, 05/16 8. R knee replacement, 2004 9. 11/15/2021 DX Hysteroscopy and DX D and C ; Sigifredo Osei M.D. PHYSICAL EXAM BP- 144/84 Sitting, Right arm, large cuff Weight- 226.0 lbs Height- 67 inch BMI:35.5 CONSTITUTIONAL - NAD, well nourished, and well developed and obese SKIN - No rash, lesions, or ulcers HEENT - Normocephalic, PERRLA, EOMI NECK - No nodes, no nuchal rigidity and thyroid normal size and texture LYMPH NODES - Palpation of lymph nodes in neck and groins within normal limits LUNGS - CTA x2 without wheezes, crackles or rales CARDIAC - Regular rate and rhythm without rubs, murmurs, or gallops ABDOMEN - Without hepatosplenomegaly, distention, masses, rebound, or guarding; normal bowel sounds; no hernias EXTREMITIES - No edema or calf tenderness NEUROLOGICAL - Cranial nerves II-XII grossly intact PSYCHIATRIC - A and O to time, place, person, mood and affect External Genitial Vagina - non-tender without lesions Urethra/Urethral Meatus - non-tender Bladder - non-tender Vagina - vaginal black are pink and moist without loss of rugae and no evidence of atropy Cervix - without cervical motion tenderness and has normal size and features without evident lesions Uterus - multiparous size 6 cm & wt 75-125 g Adnexa - clear without masses or tenderness ASSESSMENT/PLAN: 1. Postmenopausal Bleeding and complex EM hyperplasia with atypia. Discussed options for treatment and pt desires we proceed with RAVH/BSO. Discussed RBAs including possibility of laparotomy and all questions answered.
[2021-11-29] VITALS (12 sets, daily range): BP systolic 108–177; BP diastolic 49–84; PULSE 73–96; RESP 16–18; TEMP 36.1–37.2; O2SAT 92–98; BMI 34.0
--- NOTE | 2021-11-29 | HYST_PTH ---
PATIENT: MCKAYLA DELATORRE LOC: [facility] [place] U#:[id number] AGE/SX: 76/F ROOM: RE11/29/[address]: Dr. Sigifredo Osei MD : 1945 BED: DIS: 11/29/2021 SPEC #: [id number] RECD: 11/29/21 11:28 STATUS: MARÍA GEORGE #: [id number] FANTA: 11/29/21 00:[address]: Sigifredo Osei DEPT: SURGICAL PATHOLOGY RECD BY: Nav Yoo ENTERED: 11/29/21 11:44 SP TYPE: HYSTERECT OTHR DR: MD Dr. Wicho Wei MD Tissues: Uterus, NOS Procedures: Decalcification bone/plaque Surgery Specimen Level V HEADER OPERATION: Lap robotic hysterectomy, BSO PRE-OP DIAGNOSIS: Postmenopausal bleeding and complex EM hyperplasia with atypia TISSUE SUBMITTED: Cervix, uterus, bilateral fallopian tubes, bilateral ovaries MICROSCOPIC DIAGNOSIS Cervix, uterus, bilateral fallopian tubes and bilateral ovaries, hysterectomy and bilateral salpingo-oophorectomy: Cervix ? chronic cystic cervicitis. Endometrium ? simple and focal complex hyperplasia without atypia. Myometrium ? leiomyomas, submucosal, intramural and subserosal (largest measuring 2.5 cm in greatest dimension) with focal area of hyalinization and calcification. Right fallopian tube - no pathologic diagnosis. Right ovary ? adenofibroma (0.5 cm in greatest dimension). Left fallopian tube - no pathologic diagnosis. SJ:cesar 12/01/2021 COMMENT Endometrium also show focal areas consistent with previously partially resected polyps. Minimal amount of ectocervical epithelium is noted, multiple sections are examined. Please make reference to previous specimen ([id number]) endocervical curettings with diagnosis of fragments of ?benign ecto- and endocervical epithelium and mucous? and endometrial curettings with diagnosis of ?fragments of endometrial polyp with extensive simple cystic and focal complex endometrial hyperplasia with atypia.? Case has been reviewed in consultation with Dr. Lilly who concurs with the above diagnosis. IDC:AM MICROSCOPIC DESCRIPTION Slides are reviewed. GROSS DESCRIPTION Received in fixative is one container labeled with the patient's name and designated cervix, uterus, bilateral fallopian tubes and bilateral ovaries. The specimen consists of a hysterectomy specimen consisting of uterus with cervix and attached bilateral fallopian tubes and ovaries. The uterus with cervix weighs 126 gm and measures 11 x 7 x 6 cm. The serosal surface is segura, glistening. The ectocervical mucosa is unremarkable. The external os is oval in contour. A few subserosal nodules are identified. The anterior serosal surface and resection margin are inked black and posterior serosal surface and resection margin are inked blue. The endocervical canal measures 4 cm in length and the endocervical mucosa is unremarkable. Sections of the cervix reveal multiple cysts filled with mucoid material. The triangular endometrial cavity measures 5.5 cm in length and up to 3.5 cm in width. The endometrium is segura, glistening without any mass lesion and measures up to 0.2 cm in thickness. Sections of the uterine wall reveal multiple intramural and subserosal nodular masses. The largest mass measures 2.5 cm in greatest dimension. Sections of these masses reveal rojas whorled cut surfaces without areas of hemorrhage, necrosis and cystic degeneration. One of the nodular masses also shows an extensive area of calcification. The right fallopian tube measures 7 cm in length and 0.5 cm in diameter. The fimbrial end is identified. No tubo-ovarian adhesions are noted. The proximal portion of the fallopian tube shows a Filshie clip which appears intact. Sections of the fallopian tube do not reveal any mass lesion. The right ovary measures 2.5 x 2 x 1.5 cm. A segura nodule is noted at the surface of the ovary measuring 0.5 cm in greatest dimension. Sections do not reveal any additional mass lesions. The left fallopian tube is similar appearance to right and measures 6.5 cm in length and 0.5 cm in diameter. The proximal portion of the fallopian tube shows a Filshie clip which appears intact. The left ovary measures 2 x 1.5 x 1.2 cm. Sections reveal unremarkable cut surfaces. Associate Product Manager sections are submitted in 18 cassettes as follows: 1 - anterior cervix, 2 - posterior cervix, 3-7 - anterior uterine wall, 8-12 - posterior uterine wall, entire endometrium is submitted, 13 - largest nodular mass, 14??smaller nodular masses, 15 - nodular mass with calcifications, 16 - right fallopian tube, 17 - right ovary including small nodule at the surface, 18??left fallopian tube and ovary. Cassette 15 is submitted after decalcification. / BARBARA:cesar 11/29/2021 More sections are submitted as follows: 19 - anterior cervix, 20 - posterior cervix. / BARBARA:cesar 11/30/2021 TC:5 CPT: 08113, 15358
[2021-11-29] MEDS: Magnesium 2 GM IV (06:35)
[2021-11-29] MEDS: Lactated Ringers 1,000 ML 15 ML IV ×2 (06:35→10:00)
[2021-11-29] MEDS: Acetaminophen 500 MG Tablet 1000 MG PO (06:35)
[2021-11-29] MEDS: Gabapentin 600 MG Tablet PO (06:35)
[2021-11-29 06:51] LABS: Bedside Glucose 120 mg/dL (74-106)
[2021-11-29] MEDS: Cefazolin 2 GM in 0.9% Normal Saline 100 ML IV (07:55)
[2021-11-29] MEDS: Ropivacaine 0.5% 30 ML Vial ×2 (08:47→10:27)
--- NOTE | 2021-11-29 10:23 | PCM.OPRPT ---
Report of Operation Date of Procedure: 11/29/21 Pre-Operative Diagnosis: Complex Endometrial Hyperplasia with Atypia Post-Operative Diagnosis: Complex Endometrial Hyperplasia with Atypia, Adhesions Surgery/Procedure Performed:: Robotic Assisted Vaginal Hysterectomy and Bilateral Salpingo-Oophorectomy with Lysis of Adhesions Description of Surgical Findings:: 12 cm uterus with 2 cm fibroid with cervix high in pelvis. Adhesions of omentum to mesh from prior ventral hernia repair. Surgeon: Sigifredo Osei valve and regulator repairer: Gavin Wylie Type of Anesthesia: General (Endotracheal) Anesthesiologist: Lowell Osei Specimen's removed: Uterus and bilateral fallopian tubes and ovaries Drains: Kaplan to straight drain (removed after surgery) Estimated Blood Loss (mL): 50 cc Fluids Replaced: Crystalloid Description of Procedure: Surgeon: Sigifredo Osei MD, FACOG Indication: This is a 76year old patient who has been having problems with postmenopausal bleeding. D&C showed her to have complex endometrial hyperplasia with focal atypia. The patient has been counseled regarding the risks, benefits and alternatives of this procedure including the possibility of bleeding, infection, and injury to surrounding structures such as bowel bladder and all questions were answered. Procedure: Pt taken to the operating room where, after induction of general anesthesia, the patient was prepped and draped in the usual sterile fashion and placed on a non-slip Huggy-u-vac device. Trendelenburg test was satisfactory. Bladder was drained of urine with a Kaplan catheter which was left in place. Anterior cervix grasped and cervix was dilated to about 3-4 mm. Uterus sounded to 11 cms. 0-Vicryl suture was placed at the 3:00 and 9:00 position of the cervix. A small Advincula Flat Surfacer Jewel Uterine Manipulator was then placed in the uterus and attention was turned to the laparoscopic portion of the procedure. Ropivocaine 0.5% was injected and an 8 mm port was introduced approximately 12 cm left and lateral to the umbilicus directly with intraperitoneal placement confirmed with CO2 insufflation. 8 mm robotic camera and right lateral side ports were introduced under direct visualization avoiding the ventral hernia mesh and dense adhesions. The camera port was introduced approximately 7 cm superior to the umbilicus. To take down the omental adhesions a 5 mm suprapubic port was placed and under direct visualization and monopolar cautery was used with scissors to take down the omental adhesions on a setting of 25 W coagulation. A 5 mm left upper quadrant port was introduced and airseal insufflation with CO2 was started. The above findings were noted. Robot was docked without difficulty and attention turned to the robotic portion of the procedure. Approximately 35 cc of Ropivicaine was used. Lysis of adhesions added approximately 45 minutes to the procedure. Bilateral infundibulopelvic ligaments were ligated with 35 grayson bipolar coagulation to the level of the round ligament. The posterior aspect of the cervix was identified and then opened for about 1 cm using 25 watt monopolar cautery. Bladder flap was opened and divided to the level of the round ligaments using monopolar cautery. Progressive bites were then ligated on each side of the cervix with 35 grayson bipolar cautery to the uterine arteries. The anterior vaginal mucosa was entered and cervix circumscribed with monopolar cautery. Uterus and attached tubes and ovaries were removed through the vagina. Vaginal cuff was closed first with 0-Vicryl Hilton stitches placed at each angle followed by closure of the mid-cuff with 0-Monocryl V-lock suture in two layers. Pelvis was copiously irrigated with saline and the right ureter was noted to peristalse. Blayne was placed across the vaginal cuff to help with some postoperative hemostasis. Robot was undocked and trocars were removed with as much gas as possible. Before removing the camera port the omentum was again examined and hemostasis was noted. Incisions were closed with 4-0 Monocryl subcuticular sutures and incisions covered with steri-strips. The patient tolerated the procedure well and was taken to the recovery room in satisfactory condition. Sponge, instruments and needle counts were all correct. There were no apparent complications of the surgery. Ancef 2 gms IV was given prior to the procedure. Estimated Blood Loss: 50 cc Specimen to Pathology: Uterus and bilateral fallopian tubes and ovaries Grafts/Implants Used: None Complications None Admit VTE Documentation VTE Present on Admission: Yes VTE Mechan Device Prophylaxis: SCD's
--- NOTE | 2021-11-29 10:36 | PCM.DC ---
Discharge Instructions Diet Discharge Diet: No restrictions Activity Discharge Activity: May Shower and May Take a Tub Bath May resume sexual activity in: 6 weeks (nothing in the vagina.) Lifting Restrictions: 25 pounds for 6 weeks. Additional Activity Instructions:: Nothing in the vagina for 6 weeks please; no lifting more than 20-25 lbs for 6 weeks. Use Ibuprophen 800 mg orally every 8 hours as needed for pain. Can also add Tylenol 1000 mg every 8 hours if needed for pain. If Ibuprophen and Tylenol are not effective then use the Oxycodone but keep in mind it can cause serious constipation issues. Drink lots of water. Call if bleeding more than a pad per hour. Use the colace as constipation is a big issue after this type of surgery. Steps and walking are OK. Activity is encouraged but do not over do it !! Dressing / Incision Call your doctor if your incision/area has: Continuous Slow Oozing, Sudden Increased Bleeding, Increased Pain/ Swelling, Increased Redness and Foul Smelling Discharge Call your doctor if you observe: Fever of 101 or Higher, Inability to urinate, Inability to have a bowel movement, Using more than 1 pad per hour and - (Some vaginal bleeding may be noted for up to 4-8 weeks.) Cleanse incision/area with: - (Let the soapy water run over your incision, rinse and pat dry.) Additional Dressing/Incision Instructions:: The white strips (Steri Strips) on your incisions will fall off on their own. If they fall off and it bothers you it is okay to put Band-Aids across the incisions. Follow Up Care Please Follow Up With: Sigifredo Osei MD When: Call [phone] for an appointment to be seen in 2 weeks. Test Results: Test results from this visit will be discussed in further detail at your follow-up appointment, if applicable. Discharge Plan Admission Primary Reason for Your Visit: Robotic Vaginal Hysterectomy. Complex endometrial hyperplasia with atypia. Attending Provider: Sigifredo Osei Primary Care Provider: Martín Rosa Consulting Providers: Jr Mcgregor Discharge Orders/Prescriptions Prescriptions: New oxycodone 5 mg capsule 5 mg PO Q6H PRN (Reason: pain (scale score 7-10)) 7 Days Qty: 14 RF: 0 docusate sodium 100 mg tablet 100 mg PO BID PRN (Reason: constipation) Qty: 60 RF: 1 Continued zinc 15 mg Tablet 30 mg PO DAILY RF: 0 levothyroxine [Synthroid] 137 mcg tablet 150 mcg PO DAILY RF: 0 enalapril maleate 10 mg tablet 10 mg PO DAILY RF: 0 ketotifen fumarate [Zaditor] 0.025 % (0.035 %) Drops 1 drp EACH EYE BID PRN (Reason: allergies) RF: 0 ipratropium bromide 42 mcg (0.06 %) spray,non-aerosol 1 spray INTRANASAL QHS PRN (Reason: Congestion) RF: 0 fluocinolone acetonide oil 0.01 % drops 4 drp EACH EAR DAILY PRN (Reason: ear discomfort) RF: 0 cholecalciferol (vitamin D3) [Vitamin D3] 125 mcg (5,000 unit) Tablet 125 mcg PO DAILY RF: 0 Catalyn 1 tab PO/SL TID RF: 0 Quercetin Nettle 1 tab PO/SL DAILY RF: 0 amlodipine 5 mg tablet 5 mg PO DAILY RF: 0 Other Ambulatory Orders: 12 Lead EKG (Routine) Timeframe: [id number] Location: None Selected Ordered By: Dr. Jr Mcgregor Referrals / Follow Up: Martín Rosa MD [Primary Care Provider] - Disposition Disposition (needs filled in before D/C Order can be placed): Home, Self Care
== END 2021-11-29 17:55 | disposition home or self-care (01) ==
LOC: SDC 05:52 → AC 05:52
PROVIDERS: Anesthesiology; PCP Family Medicine; Referring Provider Obstetrics & Gynecology; Visit Provider Obstetrics & Gynecology
PROC: 0UT94ZZ Resection of Uterus, Percutaneous Endoscopic Approach (ICD-10-PCS; CPT 58262; principal; 2021-11-29 07:40)
DX: N85.01 Benign endometrial hyperplasia (principal); D25.0 Submucous leiomyoma of uterus; D25.1 Intramural leiomyoma of uterus; D25.2 Subserosal leiomyoma of uterus; D27.0 Benign neoplasm of right ovary; N72 Inflammatory disease of cervix uteri; N95.0 Postmenopausal bleeding; K66.0 Peritoneal adhesions (postprocedural) (postinfection); I10 Essential (primary) hypertension; E78.00 Pure hypercholesterolemia, unspecified; E07.9 Disorder of thyroid, unspecified; E66.9 Obesity, unspecified; G47.30 Sleep apnea, unspecified; M19.90 Unspecified osteoarthritis, unspecified site; Z68.34 Body mass index [BMI] 34.0-34.9, adult; Z79.899 Other long term (current) drug therapy
CPT/HCPCS: 58262; S2900; 49329; 00944; 36415; 82962; 83735; 84443; 88307; 88311; 93005; J7120; J2405

== ENCOUNTER → 2022-01-20 | Outpatient (CLI) | payer MEDICARE, BC, SELFPAY ==
[2022-01-20 18:23] LABS: T4 Free Direct 1.21 ng/dL (0.76-1.46)
== END | disposition home or self-care (01) ==
LOC: MFPLAB 15:02
PROVIDERS: PCP Family Medicine; Referring Provider Family Medicine; Visit Provider Family Medicine
DX: E03.9 Hypothyroidism, unspecified (principal)
CPT/HCPCS: 36415; 84439; 84443

== ENCOUNTER → 2022-01-25 | Outpatient (CLI) | payer MEDICARE, BC, SELFPAY ==
--- NOTE | 2022-01-25 10:59 | BD_ITS ---
STUDY: DUAL ENERGY X-RAY ABSORPTIOMETRY / DXA REASON FOR EXAM: Female, 76 years old. POST MENOPAUSAL TECHNIQUE: Bone Mineral Density (BMD) measurements of lumbar spine and bilateral hips were obtained. COMPARISON: None. FINDINGS: Lumbar Spine (L1-L4): g/cm2 (1.307) / T-score (2.4) / Z-score (4.8) Findings are suggestive of normal bone density with a low fracture risk. Left Femur Total: g/cm2 (1.297) / T-score (2.9) / Z-score (4.8) Left Femoral Neck: g/cm2 (1.117) / T-score (2.4) / Z-score (4.6) Right Femur Total: g/cm2 (1.275) / T-score (2.7) / Z-score (4.6) Right Femoral Neck: g/cm2 (1.093) / T-score (2.2) / Z-score (4.) BD/Dexa Bone Density Study IMPRESSION: The patient is considered normal as outlined below according to World Joao Organization (WHO) criteria with a low fracture risk. Reference Information: The T-score is the number of standard deviations above or below the standard which is normal for young adults at their peak bone mineral density. The World Health Organization (WHO) interprets the T-scores as follows: Above -1 Normal bone density Between -1 and -2.5 Osteopenia Equal to / or below -2.5 Osteoporosis As a practical clinical guideline, osteopenia may be graded as follows: Mild -1 through -1.5 Moderate -1.6 through -2.0 Severe -2.1 through -2.4 The Z-score is the number of standard deviations above or below age-matched controls. A Z-score of less than -1.5 would be considered abnormal. References: 1. NIH Osteoporosis and Related Bone Diseases www osteo.org 2. International Society for Clinical Densitometry www iscd.org 3. National Osteoporosis Foundation www nof.org Electronically Signed: Homer Brown MD at 10:25 EDT ,
== END | disposition home or self-care (01) ==
LOC: OPBD 10:50
PROVIDERS: PCP Family Medicine; Visit Provider Internal Medicine Endocrinology, Diabetes & Metabolism
DX: M85.80 Other specified disorders of bone density and structure, unspecified site (principal); E21.0 Primary hyperparathyroidism; Z78.0 Asymptomatic menopausal state
CPT/HCPCS: 77080

== ENCOUNTER → 2022-01-28 | Outpatient (CLI) | payer MEDICARE, BC, SELFPAY ==
--- NOTE | 2022-01-28 16:18 | US_ITS ---
STUDY: RENAL ULTRASOUND - COMPLETE REASON FOR EXAM: Female, 76 years old. nephrolithiasis TECHNIQUE: Ultrasound evaluation of the kidneys was performed with real-time and static mena-scale imaging. COMPARISON: None. FINDINGS: RIGHT KIDNEY: Normal location of the right kidney, which is normal in size. The right kidney measures 13 cm. There is focal scarring of the renal cortex. The renal cortex measures 1.6 cm. There is no right renal mass or cyst. There are no right renal calculi. There is no right hydronephrosis. DISTAL RIGHT URETER: There is non-visualization of the distal right ureter. There is no demonstrated right ureterovesical junction calculus. There is a visualized right ureteral jet. LEFT KIDNEY: with mild renal atrophy. The left kidney measures 9.8 cm. There is focal scarring of the renal cortex. The renal cortex measures 1.3 cm. There is no left renal mass or cyst. There are no left renal calculi. There is no left hydronephrosis. Echogenic. DISTAL LEFT URETER: There is non-visualization of the distal left ureter. There is no demonstrated left ureterovesical junction calculus. There is a visualized left ureteral jet. AORTA: There is obscuration of the abdominal aorta by overlying bowel gas I.V.C.: The IVC is obscured. BLADDER: The distended urinary bladder has a volume of 370 ml. There is a normal wall thickness of the distended urinary bladder. There is no demonstrated mass within the urinary bladder. There are no demonstrated bladder calculi. US/Kidney and Bladder IMPRESSION: Echogenic and atrophic left kidney. This can suggest chronic medical renal disease. Electronically Signed: Elio Mckeon MD at 20:19 EDT ,
== END | disposition home or self-care (01) ==
LOC: US 16:17
PROVIDERS: PCP Family Medicine; Referring Provider Internal Medicine Endocrinology, Diabetes & Metabolism; Visit Provider Internal Medicine Endocrinology, Diabetes & Metabolism
DX: N20.0 Calculus of kidney (principal); N18.31 Chronic kidney disease, stage 3a
CPT/HCPCS: 76770

== ENCOUNTER → 2022-02-07 | Outpatient (CLI) | payer MEDICARE, BC, SELFPAY ==
--- NOTE | 2022-02-07 15:24 | US_ITS ---
INDICATION: Locate parathyroid adenoma EXAMINATION: Ultrasound US Thyroid (eg thyroid, parathyroid, parotid) TECHNIQUE: Rosales scale and color doppler imaging was performed of the thyroid gland. COMPARISON: None. FINDINGS: RIGHT THYROID LOBE: The right lobe of the thyroid gland is unremarkable in size and demonstrates heterogeneous echogenicity with a macronodular appearance, unremarkable vascularity of the right lobe is seen. The right lobe of the thyroid gland measures 4.5 x 1.6 x 1.9 cm 2 nodules are visualized within the right lobe of the thyroid gland. #1- Location: Midpole Size: 0.8 x 0.7 x 0.5 cm Composition: 2 Echogenicity: 1 Shape: 0 Margins: 0 Echogenic Foci: 0 Total points 3, TIRADS level TR3 #2- Location: Posteromedial along the lower pole, this could represent a parathyroid gland. Size: 0.7 x 0.7 x 0.6 Composition: 2 Echogenicity: 2 Shape: 0 Margins: 0 Echogenic Foci: 0 Total points 4, TIRADS level TR4 LEFT THYROID LOBE: The left lobe of the thyroid gland is unremarkable in size demonstrating heterogeneous echogenicity and unremarkable vascularity. The left lobe of the thyroid gland measures 4.4 x 1.7 x 1.7 cm. No nodules are visualized within the left lobe. ISTHMUS: The isthmus demonstrates homogenous echogenicity and measures 0.5 cm in AP diameter. No evidence of nodules within the isthmus. A well-circumscribed hypoechoic nodule with peripheral vascularity is visualized separate from the thyroid tissue along the posterior aspect of the lower pole measuring 0.5 x 0.5 x 0.3 cm, this could represent a parathyroid gland. US/Thyroid IMPRESSION: Heterogeneous echogenicity of the thyroid gland. A 0.8 cm TR 3 nodule visualized in the midpole of the right lobe. A 0.7 cm TR 4 nodule along the posterior medial aspect of the lower pole of the thyroid gland versus a parathyroid gland.(Is seen posterior to and not completely encased within thyroid tissue) A 0.5 cm a hyperechoic nodule is visualized posterior to the lower pole of the left lobe could represent a parathyroid gland. TI-RADS follow up recommendations: TR1: Benign (0pts) No FNA biopsy. TR2: Not suspicious (2 pts) No FNA biopsy. TR3: Mildly suspicious (3 pts) FNA biopsy if nodule at least 2.5cm; follow if at least 1.5cm. TR4: Moderately suspicious (4-6 pts) FNA biopsy if nodule at least 1.5cm; follow if at least 1 cm. TR5: Highly suspicious (at least 7 pts) FNA if nodule at least 1cm; follow if at least 0.5cm. . Homogeneous echotexture with normal vascularity. [No thyroid nodules are present. Electronically Signed: Tom Becerra MD at 11:36 EDT ,
== END | disposition home or self-care (01) ==
LOC: US 15:23
PROVIDERS: PCP Family Medicine; Referring Provider Internal Medicine Endocrinology, Diabetes & Metabolism; Visit Provider Internal Medicine Endocrinology, Diabetes & Metabolism
DX: E21.0 Primary hyperparathyroidism (principal)
CPT/HCPCS: 76536

== ENCOUNTER → 2022-04-12 | Outpatient (CLI) | payer MEDICARE, BC, SELFPAY ==
--- NOTE | 2022-04-12 15:33 | RAD_ITS ---
EXAM: XR CERVICAL SPINE, 6 OR MORE VIEWS CLINICAL INDICATION: DDD TECHNIQUE: Frontal, lateral, oblique and flexion/extension views of the cervical spine. This report was created using [employer] technology. COMPARISON: None. FINDINGS: VERTEBRAE: Unremarkable. Preserved vertebral body height. No acute fracture. No spondylolisthesis. Preservation of the normal cervical lordosis. No significant facet arthropathy. DISC SPACES: Degenerative changes of the intervertebral discs. SOFT TISSUES: Unremarkable. No prevertebral soft tissue widening. LUNG APICES: Clear. RAD/Cerv Spine Obl/Flex/Ext Comp IMPRESSION: 1. No acute injuries identified involving the cervical spine. 2. Degenerative changes. Electronically Signed: Elio Lynn MD at 2:03 EDT ,
--- NOTE | 2022-04-12 15:35 | RAD_ITS ---
EXAM: XR LEFT SHOULDER COMPLETE, 2 OR MORE VIEWS CLINICAL INDICATION: left shoulder pain TECHNIQUE: Two or more views of the left shoulder. This report was created using [employer] report generation technology. COMPARISON: None. FINDINGS: BONES/JOINTS: Degenerative changes of the acromioclavicular and glenohumeral joints. No acute fracture. No subluxation. Normal alignment. No sclerotic or destructive changes observed. SOFT TISSUES: Unremarkable. No soft tissue swelling or gas. No radiopaque foreign body. RAD/Shoulder min 2 Views IMPRESSION: Degenerative changes of the acromioclavicular and glenohumeral joints. No acute abnormalities. Electronically Signed: Elio Lynn MD at 2:05 EDT ,
== END | disposition home or self-care (01) ==
LOC: MTRAD 15:30
PROVIDERS: PCP Family Medicine; Referring Provider Family Medicine; Visit Provider Family Medicine
DX: M50.30 Other cervical disc degeneration, unspecified cervical region (principal); M19.012 Primary osteoarthritis, left shoulder
CPT/HCPCS: 72052; 73030

== ENCOUNTER → 2022-04-22 | Outpatient (CLI) | payer MEDICARE, BC, SELFPAY ==
--- NOTE | 2022-04-22 10:39 | BI_ITS ---
MAMMOGRAPHY - BILATERAL SCREENING REASON FOR EXAM: Female, 76 years old. Routine annual screening examination. PERTINENT HISTORY: Daughter with breast cancer. Mother with breast cancer. TECHNIQUE: Digital bilateral breast allyssa (3D mammographic acquisition) in the CC and MLO projections. 2-D mediolateral oblique (MLO) and craniocaudad (CC) views of both breasts were obtained. CAD: Full Field Digital Mammography with Computer Added Detection was performed. COMPARISON: Comparison is made with prior examination dated 04/06/2021 and 04/03/2020. FINDINGS: Breast Composition: The breasts are heterogeneously dense, which may obscure small masses. There are no dominant masses or suspicious calcifications. No other significant abnormalities are identified. There has been no significant change since the prior study. BI/SCRN MAMM (CAD)W/ALLYSSA BILAT IMPRESSION: Stable bilateral screening mammogram. Yearly follow-up mammogram recommended. (A) ASSESSMENT CATEGORY: BIRADS Category 1: Negative. A letter regarding these results will be sent to the patient by the facility within 30 days. Approximately 10% of breast cancers are not detected by mammography. A normal mammogram should not delay biopsy of a clinically suspicious abnormality. [id number] Electronically Signed: Homer Brown MD at 11:54 EDT ,
--- NOTE | 2022-04-22 14:00 | MRI_ITS ---
STUDY: MRI LEFT SHOULDER REASON FOR EXAM: Female, 76 years old. left shoulder pain TECHNIQUE: Standardized fat and water weighted pulse sequences were obtained in all 3 orthogonal planes. COMPARISON: X-ray of the left shoulder dated April 12, 2022 FINDINGS: There is severe degenerative narrowing and bulky osteophyte formation of the glenohumeral joint space and humeral head respectively. The glenoid labrum has been completely torn and macerated. A small to moderate-sized lateral humeral joint effusion is present. Small loose bodies and mild synovitis is also present. The humeral head is slightly high riding in relation to the glenoid. There is mild supraspinatus tendinosis with tendon thickening, but without a demonstrated tendon tear. Normal infraspinatus tendon. Normal subscapularis tendon. Normal teres minor tendon. Normal supraspinatus muscle. Normal infraspinatus muscle. Normal subscapularis muscle. Normal teres minor muscle. Normal biceps labral complex. Normal intracapsular long biceps tendon. Normal labrum. Normal capsulo- ligamentous complex. Normal rotator interval. There is moderate osteoarthritis of the acromioclavicular articulations. There is a Type II morphology (curved), with a neutral orientation. There is no subacromial-subdeltoid bursal fluid. Normal visualized coracohumeral and coracoacromial ligaments. Normal quadrilateral space. Normal axillary space. Normal deltoid muscle. Normal trapezius muscle. MRI/Upper Ext Joint Only(Routine) IMPRESSION: 1. 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 Moderate size joint effusion with synovitis 3. Mild supraspinatus tendinosis Electronically Signed: Kostas Tony MD at 15:25 EDT Reading Location ID and State: [address] [place] [address] , Service support ,
== END | disposition home or self-care (01) ==
PROVIDERS: PCP Family Medicine; Referring Provider Family Medicine; Visit Provider Family Medicine
DX: Z12.31 Encounter for screening mammogram for malignant neoplasm of breast (principal); Z80.3 Family history of malignant neoplasm of breast; M19.012 Primary osteoarthritis, left shoulder; M75.82 Other shoulder lesions, left shoulder
CPT/HCPCS: 73221; 77063; 77067

== ENCOUNTER → 2022-05-06 | Outpatient (CLI) | payer MEDICARE, BC, SELFPAY ==
[2022-05-06 10:16] LABS: Vitamin D,25 Hydroxy 32.6 ng/mL
[2022-05-06 10:17] LABS: Anion Gap 6 (5-15); BUN 21 mg/dL (7-18); BUN/Creat Ratio 23.6 RATIO (10-20); Calcium,Total 10.6 mg/dL (8.5-10.1); Chloride 106 mmol/L (98-107); Creatinine, Serum 0.89 mg/dL (0.55-1.02); EST Glomerular Filtration Rate 65 mL/min (>60); Est Glom Filt Rate - Afr Amer 79 mL/min (>60); Glucose 101 mg/dL (74-106); Magnesium 2.1 mg/dL (1.6-2.6); Phosphorus 2.6 mg/dL (2.5-4.9); Potassium 4.1 mmol/L (3.5-5.1); Sodium Level 139 mmol/L (136-145)
[2022-05-06 10:26] LABS: PTHIN 107.5 pg/mL (18.4-80.1)
== END | disposition home or self-care (01) ==
LOC: MTLAB 07:44
PROVIDERS: PCP Family Medicine; Referring Provider Family Medicine; Visit Provider Family Medicine
DX: E83.52 Hypercalcemia (principal)
CPT/HCPCS: 36415; 80048; 82306; 82330; 83735; 83970; 84100

== ENCOUNTER → 2022-11-28 | Outpatient (CLI) | payer MEDICARE, BC, SELFPAY ==
[2022-11-28 17:57] LABS: Anion Gap 7 (5-15); BUN 16 mg/dL (7-18); BUN/Creat Ratio 15.5 RATIO (10-20); Calcium,Total 10.5 mg/dL (8.5-10.1); Chloride 110 mmol/L (98-107); Creatinine, Serum 1.03 mg/dL (0.55-1.02); EST Glomerular Filtration Rate 55 mL/min (>60); Est Glom Filt Rate - Afr Amer 67 mL/min (>60); Glucose 105 mg/dL (74-106); Potassium 4.1 mmol/L (3.5-5.1); Sodium Level 138 mmol/L (136-145)
[2022-11-28 18:03] LABS: Vitamin D,25 Hydroxy 29.1 ng/mL
[2022-11-29 09:19] LABS: PTHIN 90.2 pg/mL (18.4-80.1)
== END | disposition home or self-care (01) ==
LOC: MFPLAB 14:36
PROVIDERS: PCP Family Medicine; Visit Provider Family Medicine
DX: E83.52 Hypercalcemia (principal)
CPT/HCPCS: 36415; 80048; 82306; 82330; 83970

== ENCOUNTER → 2023-03-21 | Outpatient (CLI) | payer MEDICARE, BC, SELFPAY ==
[2023-03-21 12:35] LABS: Vitamin D,25 Hydroxy 25.8 ng/mL
[2023-03-21 12:42] LABS: Anion Gap 7 (5-15); BUN 13 mg/dL (7-18); BUN/Creat Ratio 13.8 RATIO (10-20); Calcium,Total 10.5 mg/dL (8.5-10.1); Chloride 108 mmol/L (98-107); Cholesterol 176 mg/dL (200); Creatinine, Serum 0.94 mg/dL (0.55-1.02); EST Glomerular Filtration Rate 61 mL/min (>60); Est Glom Filt Rate - Afr Amer 74 mL/min (>60); Ferritin 183 ng/mL (8-252); Glucose 106 mg/dL (74-106); High Density Lipoprotein 45 mg/dL; Iron 69 ug/dL (50-170); Potassium 4.1 mmol/L (3.5-5.1); Sodium Level 137 mmol/L (136-145); T4 Free Direct 1.31 ng/dL (0.76-1.46); Thyroid Stim Hormone (TSH) 0.57 uIU/mL (0.358-3.74); Triglycerides 262 mg/dL; Very Low Density Lipoprotein 52 mg/dL (5-40)
== END | disposition home or self-care (01) ==
LOC: MFPLAB 10:14
PROVIDERS: PCP Family Medicine; Visit Provider Family Medicine
DX: I12.9 Hypertensive chronic kidney disease with stage 1 through stage 4 chronic kidney disease, or unspecified chronic kidney disease (principal); N18.30 Chronic kidney disease, stage 3 unspecified; E03.9 Hypothyroidism, unspecified
CPT/HCPCS: 36415; 80048; 80061; 82306; 82728; 83540; 84439; 84443

== ENCOUNTER → 2023-11-10 | Outpatient (CLI) | payer MEDICARE, BC, SELFPAY ==
[2023-11-10 08:45] LABS: Mean Corp Hgb Conc 31.9 g/dL (32-36); Mean Corpuscular Hgb 27.6 pg (27.0-32.0); Mean Corpuscular Volume 86.6 fL (81-99); Mean Platelet Vol. 11.7 fl (6.2-12.0); Platelet Count 207 K/mm3 (150-450); RBC Distribution Width CV 13.6 % (11.6-14.6); RBC Distribution Width SD 42.5 fl (35.1-43.9); Red Blood Count 5.43 M/mm3 (4.2-5.4); White Blood Count 5.1 K/mm3 (4.4-11.0)
[2023-11-10 09:17] LABS: Erythrocyte Sedimentation Rate 12 mm/hr (0-30)
[2023-11-10 09:51] LABS: Hemoglobin A1c 5.7 % (3.8-5.6)
[2023-11-10 10:30] LABS: CRP < 2.90 mg/L (0.0-3.0); Rheumatoid Factor < 10.0 IU/mL (<15); Uric Acid 6.3 mg/dL (2.6-6.0)
[2023-11-13 15:32] LABS: ANTINUCLEAR ANTIBODIES DIRECT Positive (Negative)
== END | disposition home or self-care (01) ==
LOC: LAB 07:33
PROVIDERS: PCP Family Medicine; Referring Provider Orthopaedic Surgery; Visit Provider Orthopaedic Surgery
DX: M19.049 Primary osteoarthritis, unspecified hand (principal); N18.31 Chronic kidney disease, stage 3a; Z79.899 Other long term (current) drug therapy
CPT/HCPCS: 36415; 81374; 83036; 84550; 85027; 85652; 86038; 86140; 86200; 86431

== ENCOUNTER 2024-01-01 15:30 | Outpatient (RCR) | payer MEDICARE, BC, SELFPAY ==
--- NOTE | 2023-12-05 07:04 | HP.OTEVAL ---
Patient's Visit Information Visit Information Visit Information: MCKAYLA DELATORRE is a 78 year old F, referred to Occupational Therapy by Dr. Ray Galloway MD, with a diagnosis of bilateral OA hands, right trigger thumb. Date of Evaluation: 12/04/23 Occupational Therapist: Jen Woodward, ROSA/Rambo, CHT Subjective Subjective: This 78 year old female was seen for OT eval with dx of right trigger thumb, bilateral hands- pt states her IF MF and thumb has swelling- pt states this has resolved- using night orthosis. pt has hx of bilateral reverse total shoulder replacements pt states her hands have bothered her for over a year. Pt states swelling in her right MCP region of IF and MF trigger finger came after her right shoulder sx. 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 left 6.5 Other: MCP region 22cm left 21cm Sensation Sensation Comments: denies Quick DASH-Disab of Arm,Shoulder& Hand Quick DASH Score: 27.2725 Goals Goal:: pt will demo understanding of using joint protection amy. to avoid tendon/lig. stress with ADLs and IADLs by d/c. pt will demo understanding of ad. eq. use ( alston on cell phone, book alston or phone alston etc) to decrease stress on joints by d/c Goal:: pt will demo a reduction in right trigger thumb by 80% by d.c Rehabilitation General Assessment: pt demo with OA changes in bilateral hands- Right more than left- Pt had concerns initially with swelling. Swelling has decreased and she continues to have a right trigger thumb that interferers with her ADLs and IADLs. pt would benefit from conservative treatment of trigger thumb, joint protection amy. and use of ad. eq. to avoid stress on ligament/tendon structures of bilateral hands. pt demo understanding and agree to POC. Therapist lb. oval 8 orthosis for right IPJ to limit right thumb triggering when pt is using her hands for ADLs and IADLs. pt is to cont. to wear night orthosis to provide support and rest. pt demo understanding and agree to POC. Rehabilitation Potential: Good Anticipated Interventions Anticipated Interventions: A/AAROM/PROM, Edema Control, Triggerpoint Release, Modalities, Orthoses, Joint Protection/Energy Conservation, Ergonomic Education, Fine Motor Coord/[place], Education re assistive Equipment, Education re Diagnosis and Home Program Visit Plan Frequency: 1-2x /Week Duration: 4 Weeks General Plan: decrease right trigger thumb ed. on joint protection amy. ad. eq. possible use of edema glove when hand has swelling. (need ed. this can be option for her) TEXT: Thank you for the opportunity to evaluate your patient. For Medicare and Medicare HMO plans, please review the plan of care and approve it. It will need to be FAXED BACK to us at [phone] for Medicare purposes. Please let me know if there are questions or concerns regarding this plan of care. Physician Signature: Date:
== END 2024-01-01 19:00 | disposition home or self-care (01) ==
LOC: OT 15:30
PROVIDERS: PCP Family Medicine; Referring Provider Orthopaedic Surgery; Visit Provider Orthopaedic Surgery
DX: M19.049 Primary osteoarthritis, unspecified hand (principal); M65.311 Trigger thumb, right thumb
CPT/HCPCS: 97035; 97140; 97166; 97530; 97760

== ENCOUNTER → 2024-03-12 | Outpatient (CLI) | payer MEDICARE, BC, SELFPAY ==
--- NOTE | 2024-03-12 10:28 | BI_ITS ---
MAMMOGRAPHY - BILATERAL SCREENING REASON FOR EXAM: Female, 78 years old. Routine annual screening examination. PERTINENT HISTORY: Daughter with breast cancer. Mother with breast cancer. Aunts with breast cancer. TECHNIQUE: Digital bilateral breast allyssa (3D mammographic acquisition) in the CC and MLO projections. 2-D mediolateral oblique (MLO) and craniocaudad (CC) views of both breasts were obtained. CAD: Full Field Digital Mammography with Computer Added Detection was performed. COMPARISON: Comparison is made with prior study April 22, 2022 and April 12, 2021. FINDINGS: Breast Composition: The breasts are heterogeneously dense, which may obscure small masses. There are no dominant masses or suspicious calcifications. Stable bilateral fat containing axillary lymph nodes. No other significant abnormalities are identified. There has been no significant change since the prior study. BI/SCRN MAMM (CAD)W/ALLYSSA BILAT IMPRESSION: Stable bilateral screening mammogram. Yearly follow-up mammogram recommended. (A) ASSESSMENT CATEGORY: BIRADS Category 2: Benign. A letter regarding these results will be sent to the patient by the facility within 30 days. Approximately 10% of breast cancers are not detected by mammography. A normal mammogram should not delay biopsy of a clinically suspicious abnormality. [id number] Electronically Signed: Homer Brown MD at 11:08 EDT ,
== END | disposition home or self-care (01) ==
LOC: OPBI 10:26
PROVIDERS: PCP Family Medicine; Referring Provider Family Medicine; Visit Provider Family Medicine
DX: Z12.31 Encounter for screening mammogram for malignant neoplasm of breast (principal)
CPT/HCPCS: 77063; 77067

== ENCOUNTER → 2024-06-03 | Outpatient (CLI) | payer MEDICARE, BC, SELFPAY ==
--- NOTE | 2024-06-03 16:25 | RAD_ITS ---
STUDY: X-RAY - UNILATERAL RIBS ( LEFT ) WITH CHEST REASON FOR EXAM: Female, 78 years old. left rib pain TECHNIQUE - RIBS: 4 view(s) of the ribs. TECHNIQUE - CHEST: PA COMPARISON: May 28, 2019 FINDINGS - RIBS: On one of the views, there is a suggestion of a hairline fracture of the of the left anterior axillary ninth rib however this is not visualized on the other views and could be artifactual. FINDINGS - CHEST: The lungs are clear and expanded. There is no demonstrated pleural abnormality. Normal size heart. Normal mediastinum and abhijeet. Normal visualized pulmonary arteries. Mildly calcified aortic arch and descending thoracic aorta. Dorsal spine demonstrates degenerative change. Normal visualized clavicles. There are shoulder prostheses noted bilaterally There is no demonstrated abnormality of the visualized soft tissue structures of the upper abdomen. RAD/Ribs Uni Min 3V w/PA Chest IMPRESSION: RIBS: Question hairline fracture of the left ninth rib.. CHEST: No acute cardiopulmonary pathology Electronically Signed: Cameron Xiong MD at 16:59 EST Reading Location ID and State: [address] [place] [address] Tel , Service support ,
== END | disposition home or self-care (01) ==
PROVIDERS: PCP Family Medicine; Referring Provider Physician Assistant; Visit Provider Physician Assistant
DX: R07.81 Pleurodynia (principal); R30.0 Dysuria
CPT/HCPCS: 71101; 87086; 87088

== ENCOUNTER 2024-06-05 00:01 | Emergency (ER) | payer MEDICARE, BC, SELFPAY ==
[2024-06-05 00:02] VITALS: BP 156/100; PULSE 101; RESP 18; TEMP 36.6; O2SAT 96; BMI 35.2
--- NOTE | 2024-06-05 00:30 | EDS_ITS ---
HPI History of Present Illness Chief Complaint: Chest Other Informant: patient Narrative Narrative: Patient is a 78-year-old female with past medical history of chronic kidney disease hypertension and hypothyroidism. She was seen recently as an outpatient secondary to left-sided chest/rib pain after lifting something. She states that she had an x-ray which showed a hairline fracture of her ninth rib. She states has been no repeat trauma but that she was only placed on a muscle relaxer and despite taking this there is been no improvement. She states she cannot sleep secondary to the persistent pain and therefore comes in for evaluation [facility] Medical History (Updated 06/05/24 @ 07:[address] Keegan Lees, DO) UTI (urinary tract infection) Left-sided chest wall pain Osteoporosis Stage 3a chronic kidney disease (CKD) Nephrolithiasis Primary hyperparathyroidism Lipoma Wears partial dentures Wears dentures Thyroid disease Osteoarthritis History of renal disease Fatty liver High cholesterol Injury of head and neck Sleep apnea CPAP (continuous positive airway pressure) dependence Non-smoker PONV (postoperative nausea and vomiting) Hypertension Home Medications ?Medication ?Instructions ?Recorded ?Last Taken ?Type cholecalciferol (vitamin D3) 125 125 mcg PO DAILY 11/08/21 Unknown History mcg (5,000 unit) tablet (Vitamin D3) enalapril maleate 10 mg tablet 10 mg PO DAILY 11/08/21 11/29/21 History amlodipine 5 mg tablet 5 mg PO DAILY 11/24/21 11/29/21 History amlodipine 10 mg tablet 10 mg PO 01/18/22 Unknown History amoxicillin 875 mg-potassium 1 tab PO BID #10 tabs 06/03/24 Unknown Rx clavulanate 125 mg tablet levothyroxine 125 mcg tablet 125 mcg PO QDAY 06/03/24 Unknown History (Synthroid) omega 3-ozk-rhx-fish oil 300 1 cap PO QDAY 06/03/24 Unknown History mg-1,000 mg capsule (Fish Oil) metaxalone 800 mg tablet 800 mg PO TID PRN muscle pain #20 06/04/24 Unknown Rx tabs oxycodone-acetaminophen 5 mg-325 1 tab PO Q6H PRN pain 5 days #20 06/05/24 Unknown Rx mg tablet (Percocet) tabs Allergy/AdvReac Type Severity Reaction Status Date / Time ciprofloxacin (From Cipro) Allergy Nausea Verified 06/05/24 00:02 escitalopram (From Lexapro) Allergy Other Verified 06/05/24 00:02 hydrocodone (From Vicodin) Allergy Nausea/Vom/ Verified 06/05/24 00:02 Diarrhea nickel (mari) Allergy other Verified 06/05/24 00:02 nut - unspecified (nuts) Allergy Other Verified 06/05/24 00:02 phenolphthalein (From Ex-Lax) Allergy PT UNSURE Verified 06/05/24 00:02 OF REACTION tetracycline Allergy Rash Verified 06/05/24 00:02 Family History Other Breast cancer CAD (coronary artery disease) CVA (cerebral vascular accident) Cancer Diabetes Heart disease Hypertension Seizures Surgical History H/O laparoscopy History of bilateral cataract extraction History of colonoscopy History of D&C History of umbilical hernia repair History of bilateral knee replacement History of carpal tunnel release of both wrists Social History Smoking Status: Never smoker alcohol intake: current alcohol intake frequency: 0-2 drinks per day substance use type: does not use what type of physical activity do you participate in: walking ROS ROS ED Constitutional Constitutional ED: Denies chills or fever(s) Eyes Eyes: Denies change in vision ENT ENT ED: Denies sore throat Cardiovascular Cardiovascular: Reports chest pain and other Details: Positive chest wall pain ; Denies palpitations or racing heartbeat Respiratory/Chest Respiratory/Chest: Denies cough or dyspnea Gastrointestinal Gastrointestinal: Denies abdominal pain, diarrhea, nausea or vomiting Genitourinary Genitourinary ED: Denies dysuria Musculoskeletal Musculoskeletal: Denies back pain Integumentary Denies rash Neurologic Neurologic: Denies headache(s) Hematologic/Lymphatic Hematologic/Lymphatic: Denies easy bleeding or easy bruising EXAM Physical Exam Const Vital Signs: 06/05/24 00:02 06/05/24 00:04 Temperature 97.8 F Temperature Source Temporal Pulse Rate 101 H Respiratory Rate 18 Respiratory Effort Normal Blood Pressure 156/100 H Blood Pressure Mean 118 Pulse Ox 96 Oxygen Delivery Method Room Air Positive well nourished and well developed General Appearance ED: well developed; Negative for pallor HEENT HEENT Narrative: Normocephalic atraumatic Eyes PERRL and EOMs intact bilaterally General Eye ED: Negative for scleral icterus Neck supple Chest Wall Chest Narrative: There is reproducible pain with palpation along the left anterior lateral chest wall rib regions 8-12 without bony deformity or crepitance Resp normal respiratory effort and clear to auscultation bilaterally Cardio regular rate and regular rhythm Rate: other Other Details: Heart is regular rate and rhythm without murmurs rubs or gallops Radial and carotid pulses are equal and symmetric GI normal to inspection, nondistended, normoactive bowel sounds, non-tender, non- distended and no masses Auscultation: normoactive bowel sounds Palpation: soft Back/Spine no CVA tenderness Extremity normal to inspection Neuro oriented x3, CN's II-XII intact bilaterally and no sensory deficits noted Sensorium / Orientation: alert Motor Exam: strength 5/5 throughout Psych mental status grossly normal Skin no rashes or lesions noted and no wounds General Skin Exam: Negative for jaundice or pallor MDM MDM MDM Narrative Medical decision making narrative: Patient presented the ER hypertensive but has a past medical history of this. She has a known left ninth rib fracture. She states has been no repeat trauma. Physical exam does not show changes concerning for infection such as cellulitis abscess or shingles. She had a urine sample obtained at her outpatient facility and the culture is not growing any bacteria in his preliminary stage going against UTI/pyelonephritis. The patient's x-ray also did not show signs of pneumothorax nor are other indicators of this on physical exam. Therefore as patient's history and exam is most consistent with persistent pain secondary to a rib fracture I will simply place her on Percocet which she is tolerated well in the past and is otherwise safe for discharge. History & Record Review Discussion w/independent historian: Patient Discharge Plan Triage Chief Complaint: Chest Other Other Complaint: Complaint ED Provider: Keegan Lees Dx/Rx/DC Orders Clinical Impression: Left rib fracture, Stage 3a chronic kidney disease (CKD), Hypothyroidism, Hypertension Instructions: ED Rib Fracture Prescriptions: New oxycodone-acetaminophen [Percocet] 5-325 mg tablet 1 tab PO Q6H PRN (Reason: pain) 5 Days Qty: 20 0RF No Action amlodipine 10 mg tablet 10 mg PO levothyroxine [Synthroid] 125 mcg tablet 125 mcg PO QDAY omega 6-upp-iiq-fish oil [Fish Oil] 300-1,000 mg capsule 1 cap PO QDAY amoxicillin-pot clavulanate 875-125 mg tablet 1 tab PO BID Qty: 10 0RF enalapril maleate 10 mg tablet 10 mg PO DAILY Patient Comments: TAKE 1 TABLET BY MOUTH EVERY DAY cholecalciferol (vitamin D3) [Vitamin D3] 125 mcg (5,000 unit) Tablet 125 mcg PO DAILY amlodipine 5 mg tablet 5 mg PO DAILY metaxalone 800 mg tablet 800 mg PO TID PRN (Reason: muscle pain) Qty: 20 0RF Primary Care Provider: Wicho Rosa Referrals: Wicho Rosa MD [Primary Care Provider] - Activity Restrictions/Additional Instructions: Please take 2 or 3 [id number] ibuprofen along with your Percocet as the medications work together and help keep your pain better controlled for a longer duration. Your initial urine culture does not exhibit any growth. Please check with your family doctor in the next 1 to 2 days for the final culture and then you may stop your antibiotic if the culture is negative. Please return to the ER should you have any further concerns or worsening of symptoms Print Language: [place] Disposition Disposition: Home, Self Care Discharge Date/Time: 06/05/24 00:41
[2024-06-05] MEDS: oxyCODONE 5 MG Tablet 10 MG PO (00:39)
== END 2024-06-05 00:41 | disposition home or self-care (01) ==
LOC: ED 00:38
PROVIDERS: Emergency Provider Emergency Medicine; PCP Family Medicine; Visit Provider Emergency Medicine
DX: S22.32XA Fracture of one rib, left side, initial encounter for closed fracture (principal); N18.31 Chronic kidney disease, stage 3a; E03.9 Hypothyroidism, unspecified; I12.9 Hypertensive chronic kidney disease with stage 1 through stage 4 chronic kidney disease, or unspecified chronic kidney disease; G47.30 Sleep apnea, unspecified; X58.XXXA Exposure to other specified factors, initial encounter
CPT/HCPCS: 99283

== ENCOUNTER 2024-07-10 07:11 | Emergency (ER) | payer MEDICARE, BC, SELFPAY ==
[2024-07-10 07:12] VITALS: BP 182/92; PULSE 125; RESP 20; TEMP 36.4; O2SAT 98
--- NOTE | 2024-07-10 07:29 | EX.ED.DYSGE1 ---
HPI History of Present Illness Chief Complaint: Hypertension Narrative Narrative: 78-year-old female presents with elevated blood pressure and overall feeling of malaise and not feeling right. She relates history that approximately a month ago she was diagnosed with shingles. She had pain on the left side of her abdomen that they could not figure out what was wrong, but 6 days later she developed a rash. She was treated for shingles and now has postherpetic neuralgia. She states that she is supposed to be on gabapentin 3 times a day. She also went to her chiropractor who told her to start to take ivermectin for pain. She states she went to the vet, and started taking it. However, when she took it yesterday, she did not feel well afterwards and states she laid down. She was able to have dinner, then took another dose in the evening. Since then, she states that she started feeling worse. She denies any nausea or vomiting, no fevers or chills but states she does not feel right. She did not take her antihypertensives, nor did she take gabapentin. She complains of left-sided abdominal pain but no problems with diarrhea, no other problems with bowel movements. No dysuria or hematuria, but states she does not feel right. Denies any abdominal bloating. Past surgical history includes hysterectomy. No exacerbating or alleviating factors. [facility] Medical History UTI (urinary tract infection) Left-sided chest wall pain Osteoporosis Stage 3a chronic kidney disease (CKD) Nephrolithiasis Primary hyperparathyroidism Lipoma Wears partial dentures Wears dentures Thyroid disease Osteoarthritis History of renal disease Fatty liver High cholesterol Injury of head and neck Sleep apnea CPAP (continuous positive airway pressure) dependence Non-smoker PONV (postoperative nausea and vomiting) Hypertension Home Medications ?Medication ?Instructions ?Recorded ?Last Taken ?Type cholecalciferol (vitamin D3) 125 125 mcg PO DAILY 11/08/21 Unknown History mcg (5,000 unit) tablet (Vitamin D3) enalapril maleate 10 mg tablet 10 mg PO DAILY 11/08/21 11/29/21 History amlodipine 5 mg tablet 5 mg PO DAILY 11/24/21 11/29/21 History amlodipine 10 mg tablet 10 mg PO 01/18/22 Unknown History amoxicillin 875 mg-potassium 1 tab PO BID #10 tabs 12/09/24 Unknown Rx clavulanate 125 mg tablet levothyroxine 125 mcg tablet 125 mcg PO QDAY 06/03/24 Unknown History (Synthroid) omega 0-ohc-ndo-fish oil 300 1 cap PO QDAY 06/03/24 Unknown History mg-1,000 mg capsule (Fish Oil) metaxalone 800 mg tablet 800 mg PO TID PRN muscle pain #20 06/04/24 Unknown Rx tabs oxycodone-acetaminophen 5 mg-325 1 tab PO Q6H PRN pain 5 days #20 06/05/24 Unknown Rx mg tablet (Percocet) tabs ondansetron 4 mg disintegrating 4 mg PO Q8H PRN PRN Nausea #10 tabs 07/10/24 Unknown Rx tablet Allergy/AdvReac Type Severity Reaction Status Date / Time ciprofloxacin (From Cipro) Allergy Nausea Verified 07/10/24 07:14 escitalopram (From Lexapro) Allergy Other Verified 07/10/24 07:14 hydrocodone (From Vicodin) Allergy Nausea/Vom/ Verified 07/10/24 07:14 Diarrhea nickel (mari) Allergy other Verified 07/10/24 07:14 nut - unspecified (nuts) Allergy Other Verified 07/10/24 07:14 phenolphthalein (From Ex-Lax) Allergy PT UNSURE Verified 07/10/24 07:14 OF REACTION tetracycline Allergy Rash Verified 07/10/24 07:14 Family History Other Breast cancer CAD (coronary artery disease) CVA (cerebral vascular accident) Cancer Diabetes Heart disease Hypertension Seizures Surgical History H/O laparoscopy History of bilateral cataract extraction History of colonoscopy History of D&C History of umbilical hernia repair History of bilateral knee replacement History of carpal tunnel release of both wrists Social History Smoking Status: Never smoker alcohol intake: current alcohol intake frequency: 0-2 drinks per day substance use type: does not use what type of physical activity do you participate in: walking ROS ROS ED ROS Narrative Constitutional: No fever, no chills. Positive malaise. HEENT: No sore throat. No neck pain. No loss of vision. No rhinorrhea. Cardiovascular: No chest pain. No palpitations. No pedal edema. Respiratory: No cough, no shortness of breath. Abdominal: Positive abdominal pain. No nausea. No vomiting. No problems with bowel movements. Genitourinary: No dysuria. No hematuria. Musculoskeletal: No myalgias. No arthralgias. Neurologic: No headaches. No dizziness. No lightheadedness. Skin: No rash. No change in color. EXAM Physical Exam Narrative Exam Narrative: Afebrile. Vital signs noted. HEENT: Normocephalic. Atraumatic. PERRL, EOMI. Neck soft and supple. No point tenderness or step off. Cardiovascular: Positive tachycardia. No murmurs, rubs, or gallops appreciated. Respiratory: No tachypnea. Lungs clear to auscultation bilaterally. Gastrointestinal: Abdomen soft, diffuse tenderness with normoactive bowel sounds. No rebound or guarding. Neurological: Awake. Alert. Nonfocal, nonlateralizing. Skin: No rash. Normal color. No pallor. Musculoskeletal: No pedal edema. Full range of motion extremities. Const Vital Signs: 07/10/24 07:12 07/10/24 07:14 07/10/24 09:11 Temperature 97.6 F L 98.9 F Temperature Source Temporal Oral Pulse Rate 125 H 97 Respiratory Rate 20 H 16 Respiratory Effort Normal Respiratory Pattern Normal Blood Pressure 182/92 H 148/81 H Blood Pressure Mean 122 103 Pulse Ox 98 96 Oxygen Delivery Method Room Air Room Air [facility] Narrative Medical decision making narrative: Differential diagnosis includes but not limited to gastritis versus pancreatitis versus diverticulitis versus ureterolithiasis. Her blood pressure may be elevated secondary to pain and the fact that she did not take her medications. Comprehensive workup was pursued. I do feel that she needs imaging of her abdomen. She may also be having medication side effect from the ivermectin. EKG obtained and interpreted by myself independently as sinus tachycardia at [address] changes. No STEMI. I reviewed her laboratory work and she has normal white count of 6.9 with hemoglobin slightly hemoconcentrated at 15.8 hematocrit 46.9, normal platelet count of 228. Her CMP is grossly unremarkable except for glucose of 170 with a normal anion gap of 13. LFTs are grossly unremarkable and lipase normal at 24 so I doubt pancreatitis. She not having chest pain so I do not feel troponin is indicated. Urinalysis is negative for infection or dehydration. I do not feel antibiotics are indicated. CT of the abdomen and pelvis shows no acute process, she does have left kidney atrophy. She does have left hydronephrosis. After morphine and ondansetron, her blood pressure came down to 148/81 without intervention although I had ordered an antihypertensive initially for elevated blood pressure. After readjustment of the cuff, she has a more normal blood pressure, and she is no longer tachycardic with a heart rate 97. At this point in time, I do not feel she requires admission. She is feeling improved with her nausea. I think she may have more of a gastritis from the ivermectin. She was told not to take this medication and she should follow-up with her primary care provider within the next few days as she canceled her appointment today at 10 AM. Return instructions to the emergency department were reviewed. She was given a prescription for 10 tablets of Zofran. Disposition is discharged home in stable condition. History & Record Review Discussion w/independent historian: Patient Additional record(s) reviewed:: Prior ED visit Lab Data Attestation: I reviewed the patient's lab results. Labs: Laboratory Results - last 24 hr 07/10/24 07/10/24 07:50 08:00 WBC 6.9 RBC 5.37 Hgb 15.8 H Hct 46.9 MCV 87.3 MCH 29.4 MCHC 33.7 RDW Std Deviation 42.5 RDW Coeff of Ronnell 13.3 Plt Count 228 MPV 11.0 Immature Gran % (Auto) 0.900 Neut % (Auto) 75.7 H Lymph % (Auto) 13.1 L [place] % (Auto) 8.6 Eos % (Auto) 1.0 Baso % (Auto) 0.7 Absolute Neuts (auto) 5.2 Absolute Lymphs (auto) 0.90 Nucleated RBC % 0 Sodium 137 Potassium 4.0 Chloride 106 Carbon Dioxide 23.0 Anion Gap 8 BUN 13 Creatinine 1.00 Estim Creat Clear Calc 59.13 Est GFR (MDRD) Af Amer 69 Est GFR (MDRD) Non-Af 57 L BUN/Creatinine Ratio 13.1 Glucose 170 H Calcium 10.8 H Total Bilirubin 0.70 AST 23 ALT 44 Alkaline Phosphatase 89 Total Protein 8.0 Albumin 4.0 Globulin 4.0 Albumin/Globulin Ratio 1.0 Lipase 24 Urine Color Yellow Urine Clarity Clear Urine pH 6.0 Ur Specific [place] 1.020 Urine Protein 100 H Urine Glucose (UA) Normal Urine Ketones Negative Urine Occult Blood 10 H Urine Nitrite Negative Urine Bilirubin Negative Urine Urobilinogen Normal Ur Leukocyte Esterase 25 H Urine RBC 0 SEEN Urine WBC 0-5 SEEN Ur Squamous Epith Cells 0-5 SEEN Ur Renal Epithelial Cell 0-5 SEEN Urine Bacteria 0 SEEN Urine Mucus 0 SEEN Radiography Diagnostic Testing: Clinical Impression(s) from Imaging Studies Abdomen/Pelvis CT 07/10/24 08:48 IMPRESSION: Fatty infiltration of the liver. Small layering gallstones along the dependent portion gallbladder lumen. Stable left renal atrophy with mild degree of left hydronephrosis and hydroureter down to the left ureterovesical junction. Possible recently passed calculus. Sigmoid diverticulosis. Electronically Signed: Homer Brown MD at 9:10 EST , Discharge Plan Triage Chief Complaint: Hypertension Other Complaint: Nausea/Vomiting ED Provider: Magdaleno Huang Dx/Rx/DC Orders Clinical Impression: Abdominal pain, Nausea, Hypertension Instructions: ED Abdominal Pain Unkn Cause Fem, ED High Blood Pressure Hypertension Prescriptions: New ondansetron 4 mg tablet,disintegrating 4 mg PO Q8H PRN PRN (Reason: Nausea) Qty: 10 0RF No Action amlodipine 10 mg tablet 10 mg PO levothyroxine [Synthroid] 125 mcg tablet 125 mcg PO QDAY omega 1-asx-qav-fish oil [Fish Oil] 300-1,000 mg capsule 1 cap PO QDAY amoxicillin-pot clavulanate 875-125 mg tablet 1 tab PO BID Qty: 10 0RF enalapril maleate 10 mg tablet 10 mg PO DAILY Patient Comments: TAKE 1 TABLET BY MOUTH EVERY DAY cholecalciferol (vitamin D3) [Vitamin D3] 125 mcg (5,000 unit) Tablet 125 mcg PO DAILY amlodipine 5 mg tablet 5 mg PO DAILY oxycodone-acetaminophen [Percocet] 5-325 mg tablet 1 tab PO Q6H PRN (Reason: pain) 5 Days Qty: 20 0RF metaxalone 800 mg tablet 800 mg PO TID PRN (Reason: muscle pain) Qty: 20 0RF Primary Care Provider: Wicho Rosa Referrals: Wicho Rosa MD [Primary Care Provider] - 3-5 Days Activity Restrictions/Additional Instructions: Stop taking ivermectin. Follow-up with your primary care provider in the next few days for your previously scheduled appointment and this emergency department visit. Return with consistently elevated blood pressure, new or worsening symptoms including increased abdominal pain. Print Language: Armenian Disposition Disposition: Home, Self Care
[2024-07-10 07:41] VITALS: BMI 35.5
[2024-07-10] MEDS: Morphine 4 MG/ML Syringe IV (07:48)
[2024-07-10] MEDS: Ondansetron 4 MG/2 ML Vial IV (07:48)
[2024-07-10 08:03] LABS: Absolute Neutrophil Count 5.2 X10^3/uL (2.0-7.7); Basophil# 0.05 X10^3/uL; Basophil% 0.7 % (0-1); Eosinophil# 0.07 X10^3/uL; Hematocrit 46.9 % (37-47); Hemoglobin 15.8 g/dL (12.0-15.0); Lymphocyte % 13.1 % (19-41); Mean Corp Hgb Conc 33.7 g/dL (32-36); Mean Corpuscular Hgb 29.4 pg (27.0-32.0); Mean Corpuscular Volume 87.3 fL (81-99); Monocyte# 0.59 X10^3/uL; Monocyte% 8.6 % (0-10); NRBC Flagged by Analyzer 0 % (0-5); Neutrophil # 5.18 X10^3/uL (2.7-7.7); Neutrophil % 75.7 % (47-70); Platelet Count 228 K/mm3 (150-450); RBC Distribution Width CV 13.3 % (11.6-14.6); RBC Distribution Width SD 42.5 fl (35.1-43.9); Red Blood Count 5.37 M/mm3 (4.2-5.4); White Blood Count 6.9 K/mm3 (4.4-11.0)
[2024-07-10 08:12] LABS: Bacteria 0 SEEN /hpf (None Seen); Mucous, Urine 0 SEEN /hpf (<or=2+); Red Blood Cells-Urine 0 SEEN /hpf (0-5)
[2024-07-10 08:17] LABS: AST(SGOT) 23 U/L (15-37); Alanine Aminotransfer ALT/SGPT 44 U/L (13-56); Alkaline Phosphatase 89 U/L (45-117); Anion Gap 8 (5-15); BUN 13 mg/dL (7-18); BUN/Creat Ratio 13.1 RATIO (10-20); Calcium,Total 10.8 mg/dL (8.5-10.1); Chloride 106 mmol/L (98-107); EST Glomerular Filtration Rate 57 mL/min (>60); Est Glom Filt Rate - Afr Amer 69 mL/min (>60); Estimated Creatinine Clearance 59.13 ml/min; Glucose 170 mg/dL (74-106); Lipase 24 U/L (13-75); Sodium Level 137 mmol/L (136-145)
[2024-07-10 08:24] LABS: Color, Urine Yellow (Yellow); Glucose, Dipstick Normal (Normal); Ketone-Dipstick Negative (Negative); Leukocyte Esterase-Dipstick 25 /ul (Negative); Nitrite-Dipstick Negative (Negative); Occult Blood-Urine 10 /ul (Negative); Protein-Dipstick 100 mg/dl (Negative); Urine Bilirubin Dipstick Negative (Negative); Urine Clarity Clear (Clear); Urine Urobilinogen Normal (Normal)
[2024-07-10 08:38] LABS: Renal Epithelial Cells 0-5 SEEN /hpf (0-5); Squamous Epithelial Cells - UA 0-5 SEEN /hpf (5-10); White Blood Cells 0-5 SEEN /hpf (0-5)
--- NOTE | 2024-07-10 08:48 | CT_ITS ---
STUDY: CT ABDOMEN AND PELVIS WITH CONTRAST REASON FOR EXAM: Female, 78 years old. Abdominal pain RADIATION DOSAGE (If Supplied By Facility): CTDIvol = ( 15.43 ) mGy, DLP = ( 1146.04 ) mGycm TECHNIQUE: Transaxial images were obtained from the dome of the diaphragm to the symphysis pubis without oral contrast. IV 100mL Isovue-370 was administered. Sagittal and coronal images were reconstructed. Individualized dose optimization techniques were used for this CT. COMPARISON: Comparison is made with prior study dated May 08, 2017. FINDINGS: The visualized lung bases are unremarkable. Minimal coronary artery calcification is seen. There is decreased attenuation of the liver consistent with steatosis. Small layering gallstones are seen along the dependent portion of the gallbladder lumen. Normal spleen. Normal pancreas. Normal bilateral adrenal glands. Normal right kidney. Left renal atrophy with lobular contour suggestive of cortical parenchymal scarring.. Mild left hydronephrosis. Minimal left hydroureter down to the urinary bladder. This may represent changes secondary to a recently passed calculus. There is a small hiatal hernia. Normal small intestine. There are multiple colonic diverticula consistent with diverticulosis. There is non-visualization of the appendix. There is scattered atherosclerotic calcification of the abdominal aorta, without a demonstrated aneurysm. Normal inferior vena cava. Normal retroperitoneum. Normal urinary bladder. There is absence of the uterus consistent with a prior hysterectomy. Normal abdominal wall. There are degenerative changes of the visualized lumbar spine. CT/Abdomen/Pelvis W IV Cont ONLY IMPRESSION: Fatty infiltration of the liver. Small layering gallstones along the dependent portion gallbladder lumen. Stable left renal atrophy with mild degree of left hydronephrosis and hydroureter down to the left ureterovesical junction. Possible recently passed calculus. Sigmoid diverticulosis. Electronically Signed: Homer Brown MD at 9:10 EST ,
[2024-07-10 09:11] VITALS: BP 148/81; PULSE 97; RESP 16; TEMP 37.2; O2SAT 96
[2024-07-10 09:34] VITALS: BP 151/76; PULSE 89; RESP 16; TEMP 37.1; O2SAT 99
== END 2024-07-10 09:34 | disposition home or self-care (01) ==
PROVIDERS: Emergency Provider Emergency Medicine; PCP Family Medicine; Visit Provider Emergency Medicine
DX: R10.9 Unspecified abdominal pain (principal); N18.31 Chronic kidney disease, stage 3a; R11.2 Nausea with vomiting, unspecified; I12.9 Hypertensive chronic kidney disease with stage 1 through stage 4 chronic kidney disease, or unspecified chronic kidney disease
CPT/HCPCS: 74177; 80053; 81001; 83690; 85025; 93005; 96374; 96375; 99285; Q9967; A4216; J2405

== ENCOUNTER 2024-08-22 13:00 | Outpatient (RCR) | payer MEDICARE, BC, SELFPAY ==
--- NOTE | 2024-07-30 15:33 | HP.OTEVAL ---
Patient's Visit Information Visit Information Visit Information: MCKAYLA DELATORRE is a 79 year old F, referred to Occupational Therapy by Dr. Wicho Rosa MD, with a diagnosis of bilateral RF trigger fingers. Date of Evaluation: 07/30/24 Occupational Therapist: Jen Woodward, OTR/Rambo, CHT Subjective Subjective: This 79 year old female was seen for OT eval with dx of left RF and right RF - left more than right. pt states she has been dealing with for about 2 weeks. pt states she has been using a splint for night to decrease the trigger on her left hand. right is bothersome but not as sore or feeling of swelling. pt would like to get triggering to stop so she can use her hands for all ADLs and IADls without discomfort. Pain left hand: Current Pain Intensity: 3 Pain Intensity Range: 1 and 3 right hand: Current Pain Intensity: 0 Pain Intensity Range: 0 and 1 ROM ROM Comments: pt demo with positive trigger on bilateral RF- noted OA deformities of bilateral thumb and 1st MCP joint full ROM otherwise Strength Strength Comments: not tested at this time Sensation Sensation Comments: denies Quick DASH-Disab of Arm,Shoulder& Hand Quick DASH Score: 22.7250 Goals Goal:: pt will demo full fluid digit flexion without trigger by d.c Goal:: pt will report no pain greater than 1/10 use of bilateral hands with ADLs by d.c Goal:: Pt will demo understanding of joint protection and ergonomics when performing BADLs and IADLs by d/c Pt will demo understanding of adaptive Equipment use to decrease stress on joints to allow pt to perform BADSL and IADLS at VASQUEZ level. Goal:: pt will demo understanding of using supportive splint/brace to decrease bilateral RF triggering by end of 2nd visit. Rehabilitation General Assessment: pt demo with positive bilateral RF triggering increase pain of left RF with use and limiting use of right hand with ADLs. pt would benefit from skilled OT services 1-2x week for 4-6 weeks to decrease pts symptoms and return pt to he PLOF. Today therapist ed. pt on use of splinting to decrease repetitive triggering of flexor tendon at A1 murtaza. pt demo understanding and agree to POC. Rehabilitation Potential: Good Anticipated Interventions Anticipated Interventions: A/AAROM/PROM, Triggerpoint Release, Modalities, Orthoses, Joint Protection/Energy Conservation, Education re assistive Equipment, Education re Diagnosis and Home Program Visit Plan Frequency: 1-2x /Week Duration: 4 Weeks TEXT: Thank you for the opportunity to evaluate your patient. For Medicare and Medicare HMO plans, please review the plan of care and approve it. It will need to be FAXED BACK to us at [phone] for Medicare purposes. Please let me know if there are questions or concerns regarding this plan of care. Physician Signature: Date:
--- NOTE | 2024-08-22 13:26 | HP.OTDCSUM ---
Discharge Summary D/C Summary: It has been my pleasure to treat MCKAYLA DELATORRE under orders from Dr. Wicho Rosa MD, for the diagnosis of bilateral RF trigger fingers for a total of 7 visit(s). Please see the following information for a summary of their discharge status. Overall Improvement % Improvement: 60 Objective Objective/Function: pt states triggering is decreasing but noted trigger with end range motion now increase soreness. Goals Patient Goals: Regain Mobility, Decrease Pain and Use Hand/Wrist/Arm Normally Again Goal:: pt will demo full fluid digit flexion without trigger by d.c Goal:: pt will report no pain greater than 1/10 use of bilateral hands with ADLs by d.c Goal:: Pt will demo understanding of joint protection and ergonomics when performing BADLs and IADLs by d/c Pt will demo understanding of adaptive Equipment use to decrease stress on joints to allow pt to perform BADSL and IADLS at VASQUEZ level. Goal:: pt will demo understanding of using supportive splint/brace to decrease bilateral RF triggering by end of 2nd visit. D/C Information Discharge Comments: despite conservative tx pt continues to demo with bilateral RF trigger fingers- pt advised to return to for possible sx and or injection- pt states she will wait until her shingles have resolved fully prior to pursuing any further tx. d/c sentence: If there are questions or concerns regarding this patient's occupational therapy, please fell free to call me at [phone]. Thank you for the referral of this patient. Sincerely, Jen Woodward, OTR/L, CHT
== END 2024-08-22 14:35 | disposition home or self-care (01) ==
LOC: OT 13:00
PROVIDERS: PCP Family Medicine; Referring Provider Family Medicine; Visit Provider Family Medicine
DX: M65.30 Trigger finger, unspecified finger (principal); G56.00 Carpal tunnel syndrome, unspecified upper limb
CPT/HCPCS: 97035; 97110; 97140; 97166; 97530

== ENCOUNTER → 2024-12-02 | Outpatient (CLI) | payer MEDICARE, BC, SELFPAY ==
[2024-12-02 18:04] LABS: Absolute Lymphocyte Count 1.54 X10^3/uL (0.83-4.51); Absolute Neutrophil Count 5.2 X10^3/uL (2.0-7.7); Basophil# 0.06 X10^3/uL; Basophil% 0.8 % (0-1); Eosinophil# 0.27 X10^3/uL; Eosinophils% 3.4 % (0-5); Hemoglobin 15.2 g/dL (12.0-15.0); Lymphocyte # 1.54 X10^3/ul (0.83-4.51); Lymphocyte % 19.4 % (19-41); Mean Corpuscular Hgb 29.2 pg (27.0-32.0); Mean Corpuscular Volume 88.3 fL (81-99); Monocyte# 0.79 X10^3/uL; Monocyte% 9.9 % (0-10); NRBC Flagged by Analyzer 0 % (0-5); Neutrophil # 5.24 X10^3/uL (2.7-7.7); Platelet Count 255 K/mm3 (150-450); RBC Distribution Width CV 13.2 % (11.6-14.6); RBC Distribution Width SD 42.9 fl (35.1-43.9); Red Blood Count 5.21 M/mm3 (4.2-5.4); White Blood Count 7.9 K/mm3 (4.4-11.0)
[2024-12-02 18:11] LABS: Erythrocyte Sedimentation Rate 10 mm/hr (0-30)
[2024-12-02 18:55] LABS: ALB/GLOB Ratio 1.5 RATIO (0.9-2.4); AST(SGOT) 28 U/L (<=31); Alanine Aminotransfer ALT/SGPT 31 U/L (<=34); Albumin, Serum 4.3 g/dL (3.4-4.8); Alkaline Phosphatase 73 U/L (35-104); Anion Gap 14 (5-15); BUN 18 mg/dL (4-19); BUN/Creat Ratio 16.8 RATIO (10-20); Calcium,Total 9.2 mg/dL (7.6-11.0); Carbon Dioxide 24.4 mmol/L (21.0-32.0); Chloride 104 mmol/L (98-108); Creatinine, Serum 1.04 mg/dL (0.70-1.20); EST Glomerular Filtration Rate 55 (>60); Globulin 2.9 g/dL (2.2-4.2); Glucose 132 mg/dL (70-99); Magnesium 1.9 mg/dL (1.5-2.2); Potassium 4.1 mmol/L (3.3-5.1); Protein, Total 7.2 g/dL (5.9-8.4); Sodium Level 142 mmol/L (133-145); Total Bilirubin 0.47 mg/dL (0.00-1.30)
== END | disposition home or self-care (01) ==
LOC: MFPLAB 14:58
PROVIDERS: PCP Family Medicine; Referring Provider Family Medicine; Visit Provider Family Medicine
DX: R25.2 Cramp and spasm (principal)
CPT/HCPCS: 36415; 80053; 82306; 83735; 84443; 85025; 85652

== ENCOUNTER → 2025-03-27 | Outpatient (CLI) | payer MEDICARE, BC, SELFPAY ==
--- NOTE | 2025-03-27 12:00 | BI_ITS ---
EXAM: SCREENING MAMM (CAD), BILAT DATE: 03/27/2025 CLINICAL HISTORY: F, Age 79 y/o , TECHNIQUE: Procedure Code: [id number] Modality: MG Procedure: SCREENING MAMM (CAD), BILAT COMPARISON: Prior exam(s) were compared. FINDINGS: TISSUE DENSITY: The breasts are heterogeneously dense, which may obscure small masses. Bilateral Breast Mammographic Findings: No suspicious masses, calcifications or other abnormalities are identified. BI/SCREENING MAMM (CAD), BILAT IMPRESSION: No MRI evidence of malignancy in either breast. OVERALL FINAL ASSESSMENT BI-RADS 1: NEGATIVE. RECOMMENDATION: Routine annual follow-up in 1 Year Additional Recommendation none A letter with findings and recommendations will be mailed to the patient. Reading Location: [id number]
== END | disposition home or self-care (01) ==
LOC: OPBI 12:54
PROVIDERS: PCP Family Medicine; Referring Provider Family Medicine; Visit Provider Family Medicine
DX: Z12.31 Encounter for screening mammogram for malignant neoplasm of breast (principal)
CPT/HCPCS: 77067